=== PATIENT | male | born 1955 | race Caucasian/White ===

== ENCOUNTER 2017-10-31 19:45 | Inpatient (IN) | payer OTHER ==
[~2017-10-31] VITALS: Ht 185.4 cm; Wt 76.0 kg
[2017-10-31] MEDS ORDERED: PLEASE ENTER HEIGHT AND WEIGHT MC SCH (20:00)
[2017-10-31] MEDS ORDERED: PLEASE ENTER ALLERGIES MC SCH (20:00)
[2017-10-31] MEDS ORDERED: SODIUM CHLORIDE 0.9% 1,000ML IVBOLUS ONE ×2 (20:00→20:30)
[2017-10-31 20:26] LABS: MEAN CORPUSCULAR HEMOGLOBIN 28.5 pg (27.5-34.5); MEAN CORPUSCULAR HGB CONC 33.2 g/dL (33.2-36.2); MEAN CORPUSCULAR VOLUME 85.8 fL (81-97); MEAN PLATELET VOLUME 7.2 fL (7.4-10.4); PLATELET COUNT 252 x10^3/uL (130-400); RED BLOOD COUNT 3.95 x10^6/uL (4.38-5.82); RED CELL DISTRIBUTION WIDTH 13.6 % (9.4-14.8)
[2017-10-31 20:33] LABS: PH, VENOUS 6.964 pH (7.320-7.420)
[2017-10-31 20:43] LABS: ALANINE AMINOTRANSFERASE 13 U/L (12-78); ALBUMIN 1.3 g/dL (3.4-5.0); ANION GAP 26 mmol/L (5-15); CALCIUM 7.6 mg/dL (8.5-10.1); CHLORIDE 101 mmol/L (98-107); CREATININE 2.49 mg/dL (0.7-1.3)
[2017-10-31 20:46] LABS: ALKALINE PHOSPHATASE 81 U/L (45-117); BILIRUBIN,TOTAL 0.4 mg/dL (0.2-1.0); TOTAL PROTEIN 5.6 g/dL (6.4-8.2)
[2017-10-31 20:47] LABS: SALICYLATE LEVEL 6.2 mg/dL (2.8-20.0)
[2017-10-31] MEDS: NOREPINEPHRINE 4 MG in SODIUM CHLORIDE 0.9% 246 ML IV PRN (20:47)
[2017-10-31 20:49] LABS: ACETAMINOPHEN < 2 mcg/mL (10-30)
[2017-10-31] MEDS ORDERED: REGULAR INSULIN 62.5 UNITS in SODIUM CHLORIDE 0.9% 249.375 ML IV PRN (20:49)
[2017-10-31] MEDS ORDERED: PIPERACILLIN/TAZO/PMX 4.5GM 100 ML IVPB ONE (21:00)
[2017-10-31] MEDS ORDERED: PHARMACOKINETIC CONSULTATION MC ONE (21:00)
[2017-10-31] MEDS ORDERED: VANCOMYCIN 1,400 MG in SODIUM CHLORIDE 0.9% 250 ML IV ONE (21:00)
[2017-10-31] MEDS ORDERED: SODIUM CHLORIDE 0.9% 1,000 ML IV ONE (21:00)
[2017-10-31] MEDS ORDERED: VANCOMYCIN PER PHARMACY MC ONE (21:00)
[2017-10-31 21:11] LABS: MD YES
[2017-10-31 21:14] LABS: <PLATELET ESTIMATE> ADEQUATE; <RBC MORPHOLOGY> NORMAL; BAND#(MANUAL) 1.74 x10^3/uL; BANDS%(MANUAL) 22 % (0-7); LYMPH#(MANUAL) 0.55 x10^3/uL (1-3.4); LYMPHS% (MANUAL) 7 % (22-44); METAMYELOCYTES# (MANUAL) 0.16 x10^3/uL (0-0); METAMYELOCYTES% (MANUAL) 2 % (0-1); MONOS#(MANUAL) 0.24 x10^3/uL (0.3-2.7); MONOS% (MANUAL) 3 % (2-9); SEG#(MANUAL) 5.21 x10^3/uL (1.8-6.8); SEGS% (MANUAL) 66 % (42-75)
[2017-10-31 21:15] LABS: SMALL PLATELETS 1+
[2017-10-31] MEDS ORDERED: NS + 20MEQ KCL 0 ML IV ONE (21:16)
[2017-10-31 21:20] LABS: ACETONE, SERUM Large (80mg/dL) mg/dL (Negative)
[2017-10-31] MEDS: POTASSIUM CHLORIDE 20 MEQ in SODIUM CHLORIDE 0.45% 1,000 ML IV SCH (21:20)
[2017-10-31 21:46] LABS: AMPHETAMINE SCREEN, URINE Negative (Negative); BARBITURATE SCREEN, URINE Negative (Negative); BENZODIAZEPINE SCREEN, URINE Negative (Negative); CANNABINOID SCREEN, URINE Negative (Negative); COCAINE SCREEN, URINE Negative (Negative); METHADONE SCREEN, URINE Negative (Negative); OPIATE SCREEN, URINE Negative (Negative)
[2017-10-31 21:51] LABS: MICROSCOPIC INDICATED
[2017-10-31 22:11] LABS: CULTURE INDICATED? YES
[2017-10-31 22:46] LABS: RAPID INFLUENZA A Negative (Negative); RAPID INFLUENZA B Negative (Negative)
[2017-10-31 23:29] LABS: ANION GAP 25 mmol/L (5-15); CALCIUM 7.9 mg/dL (8.5-10.1); CHLORIDE 102 mmol/L (98-107)
[2017-10-31 23:33] LABS: CREATININE 2.63 mg/dL (0.7-1.3)
[2017-11-01] MEDS ORDERED: PLEASE ENTER HEIGHT MC SCH (00:26)
[2017-11-01] MEDS ORDERED: SODIUM CHLORIDE 0.9% 1,000 ML IV SCH ×2 (00:30→02:00)
[2017-11-01] MEDS ORDERED: SODIUM BICARB 8.4%, 50ML SYRINGE IVPB PRN ×2 (00:30)
[2017-11-01 00:42] LABS: ANION GAP 23 mmol/L (5-15); CALCIUM 7.8 mg/dL (8.5-10.1); CHLORIDE 104 mmol/L (98-107)
[2017-11-01 00:44] LABS: CREATININE 2.82 mg/dL (0.7-1.3)
[2017-11-01 00:51] LABS: HEMOGLOBIN A1C 13.5 % (4.2-6.3)
[2017-11-01] MEDS: REGULAR INSULIN 62.5 UNITS in SODIUM CHLORIDE 0.9% 249.375 ML IV PRN ×4 (00:53→22:40)
[2017-11-01] MEDS ORDERED: HEPARIN 5,000 UNITS/ML, 1ML ONE (01:23)
[2017-11-01] MEDS: HEPARIN 5,000 UNITS/ML, 1ML SQ SCH ×2 (01:26→09:52)
[2017-11-01] MEDS ORDERED: SODIUM BICARB 8.4%, 50ML SYRINGE ONE (01:48)
[2017-11-01 03:27] LABS: ANION GAP 17 mmol/L (5-15); CALCIUM 7.4 mg/dL (8.5-10.1); CHLORIDE 108 mmol/L (98-107); CREATININE 2.59 mg/dL (0.7-1.3)
[2017-11-01] MEDS: POTASSIUM CHLORIDE 20 MEQ in SODIUM CHLORIDE 0.45% 1,000 ML IV SCH (03:31)
[2017-11-01] MEDS ORDERED: PIPERACILLIN/TAZO/PMX 3.375GM 50 ML ONE (04:16)
[2017-11-01] MEDS: PIPERACILLIN/TAZO/PMX 3.375GM 50 ML IV SCH ×4 (04:28→22:40)
[2017-11-01] MEDS ORDERED: POTASSIUM CHLORIDE 10% 40 MEQ/30 ML UDC PO ONE (04:30)
[2017-11-01] MEDS ORDERED: SODIUM CHLORIDE 0.9% 1,000ML IVBOLUS ONE (04:30)
[2017-11-01] MEDS ORDERED: POTASSIUM CHLORIDE 40 MEQ in SODIUM CHLORIDE 0.9% 100 ML IV ONE (06:00)
[2017-11-01] MEDS ORDERED: FUROSEMIDE 20 MG/2 ML ONE (06:44)
[2017-11-01] MEDS ORDERED: FUROSEMIDE 20 MG/2 ML IV ONE (07:05)
[2017-11-01 07:29] LABS: ANION GAP 13 mmol/L (5-15); CALCIUM 7.1 mg/dL (8.5-10.1); CHLORIDE 110 mmol/L (98-107); CREATININE 2.94 mg/dL (0.7-1.3)
[2017-11-01] MEDS: PROPOFOL 100 ML IV PRN ×2 (08:25→11:20)
[2017-11-01] MEDS ORDERED: ETOMIDATE 20 MG/10 ML IVPush ONE (08:30)
[2017-11-01] MEDS: DOCUSATE 100 MG CAPSULE PO SCH ×2 (09:00→21:00)
[2017-11-01] MEDS: FILTER 0.22 MICRON IV PRN (09:17)
[2017-11-01] MEDS: AMIODARONE 900 MG in DEXTROSE 5% 482 ML IV PRN (09:18)
[2017-11-01 09:25] LABS: FIO2 100 %
[2017-11-01] MEDS ORDERED: LIDOCAINE-MPF 1%, 2ML ENDO PRN (10:00)
[2017-11-01] MEDS ORDERED: PHARMACY MAY ADJ FOR RENAL FX MC SCH (10:00)
[2017-11-01] MEDS ORDERED: ALBUTEROL/IPRATROPIUM 2.5MG/0.5MG, 3 ML ONE (10:09)
[2017-11-01 10:20] LABS: ANION GAP 12 mmol/L (5-15); CALCIUM 7.3 mg/dL (8.5-10.1); CHLORIDE 112 mmol/L (98-107); CREATININE 3.12 mg/dL (0.7-1.3); TRIGLYCERIDES 347 mg/dL (50-200)
[2017-11-01] MEDS ORDERED: MIDAZOLAM 1 MG/ML, 5ML ONE (11:05)
[2017-11-01] MEDS: NOREPINEPHRINE 4 MG in SODIUM CHLORIDE 0.9% 246 ML IV PRN ×2 (11:27→22:40)
[2017-11-01] MEDS ORDERED: MIDAZOLAM 1 MG/ML, 5ML IVPush ONE (11:30)
[2017-11-01] MEDS ORDERED: MIDAZOLAM HCL 25 MG in SODIUM CHLORIDE 0.9% 245 ML IV PRN (11:30)
[2017-11-01 13:58] LABS: ANION GAP 11 mmol/L (5-15); CALCIUM 6.9 mg/dL (8.5-10.1); CHLORIDE 112 mmol/L (98-107)
[2017-11-01 13:59] LABS: CREATININE 3.22 mg/dL (0.7-1.3)
[2017-11-01] MEDS ORDERED: VANCOMYCIN PER PHARMACY MC PRN (14:30)
[2017-11-01 15:23] LABS: CREATINE KINASE, TOTAL 248 U/L (39-308)
[2017-11-01] MEDS ORDERED: PHARMACOKINETIC MONITORING MC PRN (15:30)
[2017-11-01] MEDS ORDERED: ETOMIDATE 20 MG/10 ML ONE (15:30)
[2017-11-01] MEDS ORDERED: PROPOFOL 10 MG/ML, 100ML IV ONE (15:30)
[2017-11-01] MEDS ORDERED: PHARMACOKINETIC CONSULTATION MC ONE (15:30)
[2017-11-01] MEDS: ALBUTEROL/IPRATROPIUM 2.5MG/0.5MG, 3 ML INLINE SCH ×3 (15:35→22:09)
[2017-11-01] MEDS ORDERED: ASPIRIN 81 MG TABLET CHEW ONE (15:48)
[2017-11-01] MEDS ORDERED: HEPARIN 5,000 UNITS/ML, 1ML IV ONE (16:00)
[2017-11-01] MEDS: D5%-0.45NACL+KCL 20MEQ 1,000 ML IV SCH (16:49)
[2017-11-01] MEDS: ASPIRIN 81 MG TABLET CHEW PO SCH (16:50)
[2017-11-01] MEDS ORDERED: MIDAZOLAM HCL 50 MG in SODIUM CHLORIDE 0.9% 240 ML IV PRN (17:00)
[2017-11-01 18:25] LABS: CHLORIDE 112 mmol/L (98-107)
[2017-11-01 18:27] LABS: ANION GAP 11 mmol/L (5-15); CALCIUM 7.3 mg/dL (8.5-10.1)
[2017-11-01] MEDS: HEPARIN 25,000 UNITS/500ML PMX 500 ML IV PRN (18:38)
[2017-11-01] MEDS ORDERED: POTASSIUM CHLORIDE 20 MEQ in SODIUM CHLORIDE 0.45% 1,000 ML IV SCH (21:30)
[2017-11-01 22:44] LABS: ANION GAP 9 mmol/L (5-15); CALCIUM 7.1 mg/dL (8.5-10.1); CHLORIDE 113 mmol/L (98-107); CREATININE 3.41 mg/dL (0.7-1.3)
[2017-11-02] MEDS: ALBUTEROL/IPRATROPIUM 2.5MG/0.5MG, 3 ML INLINE SCH ×6 (02:18→22:19)
[2017-11-02] MEDS: HEPARIN 5,000 UNITS/ML, 1ML IV PRN (02:33)
[2017-11-02 02:49] LABS: ANION GAP 11 mmol/L (5-15); CHLORIDE 113 mmol/L (98-107); CREATININE 3.67 mg/dL (0.7-1.3)
[2017-11-02 02:59] LABS: THYROID STIMULATING HORMONE 0.506 mIU/L (0.358-3.740)
[2017-11-02 03:00] LABS: MEAN CORPUSCULAR HEMOGLOBIN 28.4 pg (27.5-34.5); MEAN CORPUSCULAR HGB CONC 33.5 g/dL (33.2-36.2); MEAN PLATELET VOLUME 6.5 fL (7.4-10.4); PLATELET COUNT 245 x10^3/uL (130-400); RED BLOOD COUNT 3.72 x10^6/uL (4.38-5.82); RED CELL DISTRIBUTION WIDTH 13.9 % (9.4-14.8)
[2017-11-02] MEDS: D5%-0.45NACL+KCL 20MEQ 1,000 ML IV SCH ×2 (03:09→13:28)
[2017-11-02 03:27] LABS: MD YES
[2017-11-02 03:30] LABS: <PLATELET ESTIMATE> ADEQUATE; ANISOCYTOSIS 1+; BAND#(MANUAL) 1.31 x10^3/uL; BANDS%(MANUAL) 11 % (0-7); LYMPH#(MANUAL) 0.95 x10^3/uL (1-3.4); LYMPHS% (MANUAL) 8 % (22-44); METAMYELOCYTES# (MANUAL) 0.24 x10^3/uL (0-0); METAMYELOCYTES% (MANUAL) 2 % (0-1); SEGS% (MANUAL) 79 % (42-75)
[2017-11-02 03:31] LABS: LARGE PLATELETS 1+
[2017-11-02] MEDS: PIPERACILLIN/TAZO/PMX 3.375GM 50 ML IV SCH ×4 (04:50→21:58)
[2017-11-02 04:51] VITALS: BP 114/59
[2017-11-02 06:23] LABS: ANION GAP 11 mmol/L (5-15); CALCIUM 6.7 mg/dL (8.5-10.1); CHLORIDE 111 mmol/L (98-107); CREATININE 3.77 mg/dL (0.7-1.3)
[2017-11-02] MEDS: FILTER 0.22 MICRON IV PRN (07:12)
[2017-11-02] MEDS: AMIODARONE 900 MG in DEXTROSE 5% 482 ML IV PRN (07:12)
[2017-11-02] MEDS: DOCUSATE 50 MG/5 ML, 10ML UDC PO SCH ×2 (09:00→21:00)
[2017-11-02] MEDS: AMIODARONE 200 MG TABLET PO SCH ×2 (09:53→21:58)
[2017-11-02] MEDS: REGULAR INSULIN 62.5 UNITS in SODIUM CHLORIDE 0.9% 249.375 ML IV PRN (09:53)
[2017-11-02] MEDS: PANTOPRAZOLE 40 MG IV IV SCH (09:54)
[2017-11-02 10:44] LABS: ANION GAP 11 mmol/L (5-15); CALCIUM 6.6 mg/dL (8.5-10.1); CHLORIDE 111 mmol/L (98-107)
[2017-11-02 10:48] LABS: ALANINE AMINOTRANSFERASE 15 U/L (12-78); ALKALINE PHOSPHATASE 107 U/L (45-117); BILIRUBIN,TOTAL 0.4 mg/dL (0.2-1.0); CREATININE 3.89 mg/dL (0.7-1.3); TOTAL PROTEIN 4.9 g/dL (6.4-8.2)
[2017-11-02] MEDS: ASPIRIN 81 MG TABLET CHEW PO SCH (18:32)
[2017-11-02] MEDS: HEPARIN 25,000 UNITS/500ML PMX 500 ML IV PRN (19:25)
[2017-11-03] MEDS: REGULAR INSULIN 62.5 UNITS in SODIUM CHLORIDE 0.9% 249.375 ML IV PRN (01:47)
[2017-11-03] MEDS: D5%-0.45NACL+KCL 20MEQ 1,000 ML IV SCH (01:54)
[2017-11-03] MEDS: HEPARIN 5,000 UNITS/ML, 1ML IV PRN (02:39)
[2017-11-03] MEDS: ALBUTEROL/IPRATROPIUM 2.5MG/0.5MG, 3 ML INLINE SCH ×6 (02:44→22:37)
[2017-11-03] MEDS: PIPERACILLIN/TAZO/PMX 3.375GM 50 ML IV SCH ×4 (04:25→22:24)
[2017-11-03 05:03] LABS: MEAN CORPUSCULAR HEMOGLOBIN 28.6 pg (27.5-34.5); MEAN CORPUSCULAR HGB CONC 33.6 g/dL (33.2-36.2); MEAN CORPUSCULAR VOLUME 85.1 fL (81-97); RED BLOOD COUNT 3.23 x10^6/uL (4.38-5.82); RED CELL DISTRIBUTION WIDTH 13.8 % (9.4-14.8)
[2017-11-03 05:27] LABS: CHLORIDE 102 mmol/L (98-107)
[2017-11-03 05:55] LABS: ALANINE AMINOTRANSFERASE 14 U/L (12-78); ALBUMIN 0.9 g/dL (3.4-5.0); ALKALINE PHOSPHATASE 156 U/L (45-117); ANION GAP 11 mmol/L (5-15); BILIRUBIN,TOTAL 0.7 mg/dL (0.2-1.0); CREATININE 2.98 mg/dL (0.7-1.3); MD YES; VANCOMYCIN,RANDOM 11.8 mcg/mL
[2017-11-03 05:56] LABS: MEAN PLATELET VOLUME 6.7 fL (7.4-10.4); PLATELET COUNT 154 x10^3/uL (130-400)
[2017-11-03 05:57] LABS: BAND#(MANUAL) 0.59 x10^3/uL; BANDS%(MANUAL) 5 % (0-7); LYMPH#(MANUAL) 0.59 x10^3/uL (1-3.4); LYMPHS% (MANUAL) 5 % (22-44); MONOS#(MANUAL) 0.24 x10^3/uL (0.3-2.7); MONOS% (MANUAL) 2 % (2-9); SEG#(MANUAL) 10.38 x10^3/uL (1.8-6.8); SEGS% (MANUAL) 88 % (42-75)
[2017-11-03 06:01] LABS: <PLATELET ESTIMATE> ADEQUATE; <PLT MORPHOLOGY> NORMAL PLT MORPH; <RBC MORPHOLOGY> NORMAL
[2017-11-03] MEDS ORDERED: VANCOMYCIN 1,600 MG in SODIUM CHLORIDE 0.9% 250 ML IV ONE (06:30)
[2017-11-03] MEDS ORDERED: SODIUM PHOSPHATE 20 MMOL in SODIUM CHLORIDE 0.9% 500 ML IV ONE (08:00)
[2017-11-03] MEDS ORDERED: MAGNESIUM SULFATE PMX 2GM/50ML 50 ML IV ONE (08:00)
[2017-11-03] MEDS: DOCUSATE 50 MG/5 ML, 10ML UDC PO SCH ×2 (09:00→20:47)
[2017-11-03] MEDS: AMIODARONE 200 MG TABLET PO SCH (09:11)
[2017-11-03] MEDS: PANTOPRAZOLE 40 MG IV IV SCH (09:11)
[2017-11-03] MEDS: INSULIN ASPART 100 UNITS/ML, PEN SQ-INSULIN SCH ×3 (12:08→20:52)
[2017-11-03] MEDS: INSULIN DETEMIR 100 UNITS/ML, PEN SQ-INSULIN SCH ×2 (12:08→22:27)
[2017-11-03] MEDS: ALBUMIN HUMAN 25% 100 ML IV SCH ×2 (14:07→20:48)
[2017-11-03] MEDS: PROPOFOL 100 ML IV PRN (15:21)
[2017-11-03] MEDS: ASPIRIN 81 MG TABLET CHEW PO SCH (16:46)
[2017-11-03] MEDS: ACETAMINOPHEN 650 MG/20.3 ML UDC NG PRN (22:24)
[2017-11-04] MEDS: ALBUTEROL/IPRATROPIUM 2.5MG/0.5MG, 3 ML INLINE SCH ×5 (03:12→23:00)
[2017-11-04] MEDS: PROPOFOL 100 ML IV PRN (03:43)
[2017-11-04] MEDS: ALBUMIN HUMAN 25% 100 ML IV SCH ×3 (04:26→20:23)
[2017-11-04] MEDS: PIPERACILLIN/TAZO/PMX 3.375GM 50 ML IV SCH (04:27)
[2017-11-04] MEDS: ACETAMINOPHEN 650 MG/20.3 ML UDC NG PRN (04:43)
[2017-11-04 06:12] LABS: BASOPHILS # (AUTO) 0.02 x10^3/uL (0-0.1); BASOPHILS % (AUTO) 0 % (0-1); EOSINOPHILS # (AUTO) 0.01 x10^3/uL (0-0.4); EOSINOPHILS % (AUTO) 0 % (1-7); LYMPHOCYTES # (AUTO) 0.42 x10^3/uL (1-3.4); LYMPHOCYTES % (AUTO) 7 % (22-44); MD NO; MEAN CORPUSCULAR HEMOGLOBIN 28.6 pg (27.5-34.5); MEAN CORPUSCULAR HGB CONC 34.1 g/dL (33.2-36.2); MEAN CORPUSCULAR VOLUME 83.9 fL (81-97); MEAN PLATELET VOLUME 6.7 fL (7.4-10.4); MONOCYTES % (AUTO) 3 % (2-9); NEUTROPHILS # (AUTO) 5.78 x10^3/uL (1.8-6.8); NEUTROPHILS % (AUTO) 90 % (42-75); PLATELET COUNT 121 x10^3/uL (130-400); RED BLOOD COUNT 3.02 x10^6/uL (4.38-5.82); RED CELL DISTRIBUTION WIDTH 13.8 % (9.4-14.8)
[2017-11-04 06:39] LABS: ALBUMIN 1.4 g/dL (3.4-5.0); ANION GAP 13 mmol/L (5-15); CALCIUM 7.4 mg/dL (8.5-10.1); CHLORIDE 97 mmol/L (98-107); CREATININE 3.21 mg/dL (0.7-1.3)
[2017-11-04] MEDS ORDERED: CEFTRIAXONE PMX 1GM/50ML 50 ML IV SCH (08:00)
[2017-11-04] MEDS: PANTOPRAZOLE 40 MG IV IV SCH (08:11)
[2017-11-04] MEDS: DOCUSATE 50 MG/5 ML, 10ML UDC PO SCH ×2 (08:11→20:19)
[2017-11-04] MEDS: INSULIN ASPART 100 UNITS/ML, PEN SQ-INSULIN SCH ×5 (08:13→23:15)
[2017-11-04] MEDS: INSULIN DETEMIR 100 UNITS/ML, PEN SQ-INSULIN SCH ×2 (12:24→23:14)
[2017-11-04] MEDS: ASPIRIN 81 MG TABLET CHEW PO SCH (16:00)
[2017-11-05] MEDS: ALBUTEROL/IPRATROPIUM 2.5MG/0.5MG, 3 ML INLINE SCH ×6 (03:00→22:49)
[2017-11-05] MEDS: ALBUMIN HUMAN 25% 100 ML IV SCH ×3 (04:17→20:36)
[2017-11-05] MEDS: INSULIN ASPART 100 UNITS/ML, PEN SQ-INSULIN SCH ×4 (04:22→23:41)
[2017-11-05 05:09] LABS: MEAN CORPUSCULAR HEMOGLOBIN 28.9 pg (27.5-34.5); MEAN CORPUSCULAR HGB CONC 34.2 g/dL (33.2-36.2); MEAN CORPUSCULAR VOLUME 84.4 fL (81-97); RED BLOOD COUNT 2.91 x10^6/uL (4.38-5.82); RED CELL DISTRIBUTION WIDTH 13.6 % (9.4-14.8)
[2017-11-05 05:33] LABS: BASOPHILS # (AUTO) 0.01 x10^3/uL (0-0.1); BASOPHILS % (AUTO) 0 % (0-1); EOSINOPHILS # (AUTO) 0.01 x10^3/uL (0-0.4); EOSINOPHILS % (AUTO) 0 % (1-7); LYMPHOCYTES # (AUTO) 0.51 x10^3/uL (1-3.4); LYMPHOCYTES % (AUTO) 8 % (22-44); MD SCAN; MEAN PLATELET VOLUME 6.6 fL (7.4-10.4); MONOCYTES # (AUTO) 0.52 x10^3/uL (0.2-0.8); MONOCYTES % (AUTO) 9 % (2-9); NEUTROPHILS # (AUTO) 5.02 x10^3/uL (1.8-6.8); NEUTROPHILS % (AUTO) 83 % (42-75); PLATELET COUNT 111 x10^3/uL (130-400)
[2017-11-05 07:56] LABS: ALANINE AMINOTRANSFERASE 17 U/L (12-78); ALBUMIN 1.9 g/dL (3.4-5.0); ANION GAP 16 mmol/L (5-15); CALCIUM 7.6 mg/dL (8.5-10.1); CHLORIDE 98 mmol/L (98-107); CREATININE 4.48 mg/dL (0.7-1.3)
[2017-11-05 07:58] LABS: BILIRUBIN,TOTAL 1.1 mg/dL (0.2-1.0); TOTAL PROTEIN 5.6 g/dL (6.4-8.2)
[2017-11-05 08:00] LABS: ALKALINE PHOSPHATASE 763 U/L (45-117)
[2017-11-05] MEDS: CEFTRIAXONE 1,000 MG in DEXTROSE 5% 50 ML IV SCH (08:32)
[2017-11-05] MEDS: DOCUSATE 50 MG/5 ML, 10ML UDC PO SCH ×2 (08:32→20:36)
[2017-11-05] MEDS: PANTOPRAZOLE 40 MG IV IV SCH (08:32)
[2017-11-05] MEDS: INSULIN DETEMIR 100 UNITS/ML, PEN SQ-INSULIN SCH ×2 (11:11→23:41)
[2017-11-05 15:04] LABS: HIT RESULT NEGATIVE (NEGATIVE)
[2017-11-05] MEDS: PROPOFOL 100 ML IV PRN (16:05)
[2017-11-05] MEDS: ASPIRIN 81 MG TABLET CHEW PO SCH (16:05)
[2017-11-06] MEDS: ALBUTEROL/IPRATROPIUM 2.5MG/0.5MG, 3 ML INLINE SCH ×6 (03:00→22:13)
[2017-11-06] MEDS: ALBUMIN HUMAN 25% 100 ML IV SCH ×3 (04:00→19:03)
[2017-11-06 05:48] LABS: ANION GAP 13 mmol/L (5-15); CALCIUM 8.2 mg/dL (8.5-10.1); CHLORIDE 96 mmol/L (98-107); CREATININE 3.56 mg/dL (0.7-1.3)
[2017-11-06 06:19] LABS: BASOPHILS # (AUTO) 0.01 x10^3/uL (0-0.1); BASOPHILS % (AUTO) 0 % (0-1); EOSINOPHILS # (AUTO) 0.03 x10^3/uL (0-0.4); EOSINOPHILS % (AUTO) 1 % (1-7); LYMPHOCYTES # (AUTO) 0.44 x10^3/uL (1-3.4); LYMPHOCYTES % (AUTO) 9 % (22-44); MD SCAN; MEAN CORPUSCULAR HEMOGLOBIN 28.7 pg (27.5-34.5); MEAN CORPUSCULAR HGB CONC 34.6 g/dL (33.2-36.2); MEAN CORPUSCULAR VOLUME 83.1 fL (81-97); MONOCYTES # (AUTO) 0.51 x10^3/uL (0.2-0.8); MONOCYTES % (AUTO) 10 % (2-9); NEUTROPHILS # (AUTO) 4.18 x10^3/uL (1.8-6.8); NEUTROPHILS % (AUTO) 81 % (42-75); RED BLOOD COUNT 2.82 x10^6/uL (4.38-5.82); RED CELL DISTRIBUTION WIDTH 13.7 % (9.4-14.8)
[2017-11-06 06:20] LABS: MEAN PLATELET VOLUME 7.6 fL (7.4-10.4); PLATELET COUNT 80 x10^3/uL (130-400)
[2017-11-06] MEDS: INSULIN ASPART 100 UNITS/ML, PEN SQ-INSULIN SCH ×4 (06:28→23:19)
[2017-11-06] MEDS: CEFTRIAXONE 1,000 MG in DEXTROSE 5% 50 ML IV SCH (07:54)
[2017-11-06] MEDS: DOCUSATE 50 MG/5 ML, 10ML UDC PO SCH ×2 (08:27→19:10)
[2017-11-06] MEDS: PANTOPRAZOLE 40 MG IV IV SCH (08:28)
[2017-11-06] MEDS: HEPARIN 5,000 UNITS/ML, 1ML SQ SCH ×2 (10:29→17:38)
[2017-11-06] MEDS: INSULIN DETEMIR 100 UNITS/ML, PEN SQ-INSULIN SCH ×2 (12:01→23:19)
[2017-11-06] MEDS: ASPIRIN 81 MG TABLET CHEW PO SCH (15:53)
[2017-11-07] MEDS: HEPARIN 5,000 UNITS/ML, 1ML SQ SCH ×3 (01:23→16:42)
[2017-11-07] MEDS: ALBUTEROL/IPRATROPIUM 2.5MG/0.5MG, 3 ML INLINE SCH ×6 (02:12→23:00)
[2017-11-07 03:56] LABS: MEAN CORPUSCULAR HEMOGLOBIN 28.4 pg (27.5-34.5); MEAN CORPUSCULAR HGB CONC 33.9 g/dL (33.2-36.2); MEAN CORPUSCULAR VOLUME 83.7 fL (81-97); MEAN PLATELET VOLUME 8.7 fL (7.4-10.4); PLATELET COUNT 73 x10^3/uL (130-400); RED BLOOD COUNT 2.81 x10^6/uL (4.38-5.82); RED CELL DISTRIBUTION WIDTH 13.8 % (9.4-14.8)
[2017-11-07 04:05] LABS: ALBUMIN 2.5 g/dL (3.4-5.0); ANION GAP 11 mmol/L (5-15); CHLORIDE 101 mmol/L (98-107)
[2017-11-07 04:09] LABS: ALANINE AMINOTRANSFERASE 18 U/L (12-78); ALKALINE PHOSPHATASE 907 U/L (45-117); BILIRUBIN,TOTAL 0.6 mg/dL (0.2-1.0); CREATININE 3.21 mg/dL (0.7-1.3); TOTAL PROTEIN 6.3 g/dL (6.4-8.2); TRIGLYCERIDES 187 mg/dL (50-200)
[2017-11-07] MEDS: INSULIN ASPART 100 UNITS/ML, PEN SQ-INSULIN SCH ×4 (04:58→23:00)
[2017-11-07 04:59] LABS: BASOPHILS # (AUTO) 0.02 x10^3/uL (0-0.1); BASOPHILS % (AUTO) 0 % (0-1); EOSINOPHILS # (AUTO) 0.04 x10^3/uL (0-0.4); EOSINOPHILS % (AUTO) 1 % (1-7); LYMPHOCYTES # (AUTO) 0.42 x10^3/uL (1-3.4); LYMPHOCYTES % (AUTO) 7 % (22-44); MD SCAN; MONOCYTES # (AUTO) 0.57 x10^3/uL (0.2-0.8); MONOCYTES % (AUTO) 10 % (2-9); NEUTROPHILS % (AUTO) 82 % (42-75)
[2017-11-07] MEDS: ALBUMIN HUMAN 25% 100 ML IV SCH ×3 (04:59→20:25)
[2017-11-07] MEDS ORDERED: SODIUM PHOSPHATE 20 MMOL in SODIUM CHLORIDE 0.9% 500 ML IV ONE (08:00)
[2017-11-07] MEDS: CEFTRIAXONE 1,000 MG in DEXTROSE 5% 50 ML IV SCH (08:16)
[2017-11-07] MEDS: PANTOPRAZOLE 40 MG IV IV SCH (08:16)
[2017-11-07] MEDS: DOCUSATE 50 MG/5 ML, 10ML UDC PO SCH ×2 (08:26→20:25)
[2017-11-07] MEDS: INSULIN DETEMIR 100 UNITS/ML, PEN SQ-INSULIN SCH ×2 (11:09→23:22)
[2017-11-07] MEDS: ASPIRIN 81 MG TABLET CHEW PO SCH (16:42)
[2017-11-08] MEDS: HEPARIN 5,000 UNITS/ML, 1ML SQ SCH ×3 (01:38→17:50)
[2017-11-08] MEDS: ALBUTEROL/IPRATROPIUM 2.5MG/0.5MG, 3 ML INLINE SCH ×6 (03:00→23:00)
[2017-11-08 04:05] LABS: BASOPHILS # (AUTO) 0.01 x10^3/uL (0-0.1); BASOPHILS % (AUTO) 0 % (0-1); EOSINOPHILS # (AUTO) 0.06 x10^3/uL (0-0.4); EOSINOPHILS % (AUTO) 1 % (1-7); LYMPHOCYTES # (AUTO) 0.49 x10^3/uL (1-3.4); LYMPHOCYTES % (AUTO) 7 % (22-44); MD NO; MEAN CORPUSCULAR HEMOGLOBIN 28.3 pg (27.5-34.5); MEAN CORPUSCULAR HGB CONC 33.9 g/dL (33.2-36.2); MEAN CORPUSCULAR VOLUME 83.6 fL (81-97); MEAN PLATELET VOLUME 8.5 fL (7.4-10.4); MONOCYTES # (AUTO) 0.51 x10^3/uL (0.2-0.8); MONOCYTES % (AUTO) 7 % (2-9); NEUTROPHILS # (AUTO) 6.41 x10^3/uL (1.8-6.8); NEUTROPHILS % (AUTO) 86 % (42-75); PLATELET COUNT 168 x10^3/uL (130-400); RED CELL DISTRIBUTION WIDTH 13.9 % (9.4-14.8)
[2017-11-08 04:17] LABS: ALANINE AMINOTRANSFERASE 25 U/L (12-78); ALBUMIN 2.6 g/dL (3.4-5.0); ANION GAP 12 mmol/L (5-15); CALCIUM 8.4 mg/dL (8.5-10.1); CHLORIDE 100 mmol/L (98-107); CREATININE 4.27 mg/dL (0.7-1.3); IRON LEVEL 15 mcg/dL (65-175)
[2017-11-08 04:20] LABS: % IRON SATURATION 13 % (20-55); ALKALINE PHOSPHATASE 921 U/L (45-117); BILIRUBIN,TOTAL 0.5 mg/dL (0.2-1.0); TOTAL IRON BINDING CAPACITY 119 mcg/dL (250-450); TOTAL PROTEIN 6.4 g/dL (6.4-8.2)
[2017-11-08] MEDS: ALBUMIN HUMAN 25% 100 ML IV SCH ×3 (04:25→20:45)
[2017-11-08] MEDS: INSULIN ASPART 100 UNITS/ML, PEN SQ-INSULIN SCH ×4 (06:26→23:00)
[2017-11-08] MEDS: CEFTRIAXONE 1,000 MG in DEXTROSE 5% 50 ML IV SCH (07:50)
[2017-11-08] MEDS ORDERED: ARANESP 40 MCG/ML **ESRD SQ SCH (09:00)
[2017-11-08] MEDS ORDERED: ERGOCALCIFEROL 50,000 UNIT CAPSULE PO SCH (09:00)
[2017-11-08] MEDS: PANTOPRAZOLE 40 MG IV IV SCH (09:05)
[2017-11-08] MEDS: DOCUSATE 50 MG/5 ML, 10ML UDC PO SCH ×2 (09:05→20:45)
[2017-11-08] MEDS ORDERED: MAGNESIUM SULFATE PMX 2GM/50ML 50 ML IV ONE (13:00)
[2017-11-08] MEDS: INSULIN DETEMIR 100 UNITS/ML, PEN SQ-INSULIN SCH ×2 (17:49→23:21)
[2017-11-08] MEDS: ASPIRIN 81 MG TABLET CHEW PO SCH (17:50)
[2017-11-09] MEDS: ALBUTEROL/IPRATROPIUM 2.5MG/0.5MG, 3 ML INLINE SCH ×2 (02:12→03:00)
[2017-11-09] MEDS: HEPARIN 5,000 UNITS/ML, 1ML SQ SCH ×3 (02:20→16:43)
[2017-11-09] MEDS: INSULIN ASPART 100 UNITS/ML, PEN SQ-INSULIN SCH ×4 (05:00→23:00)
[2017-11-09 05:26] LABS: BASOPHILS # (AUTO) 0.01 x10^3/uL (0-0.1); BASOPHILS % (AUTO) 0 % (0-1); EOSINOPHILS # (AUTO) 0.06 x10^3/uL (0-0.4); EOSINOPHILS % (AUTO) 1 % (1-7); LYMPHOCYTES # (AUTO) 0.42 x10^3/uL (1-3.4); LYMPHOCYTES % (AUTO) 4 % (22-44); MD NO; MEAN CORPUSCULAR HEMOGLOBIN 28.6 pg (27.5-34.5); MEAN CORPUSCULAR HGB CONC 34.1 g/dL (33.2-36.2); MEAN CORPUSCULAR VOLUME 83.8 fL (81-97); MEAN PLATELET VOLUME 7.9 fL (7.4-10.4); MONOCYTES # (AUTO) 0.57 x10^3/uL (0.2-0.8); MONOCYTES % (AUTO) 5 % (2-9); NEUTROPHILS # (AUTO) 11.12 x10^3/uL (1.8-6.8); NEUTROPHILS % (AUTO) 91 % (42-75); PLATELET COUNT 263 x10^3/uL (130-400); RED BLOOD COUNT 2.87 x10^6/uL (4.38-5.82); RED CELL DISTRIBUTION WIDTH 13.5 % (9.4-14.8)
[2017-11-09 05:30] LABS: CHLORIDE 105 mmol/L (98-107)
[2017-11-09] MEDS: ALBUMIN HUMAN 25% 100 ML IV SCH (05:31)
[2017-11-09 05:36] LABS: ALANINE AMINOTRANSFERASE 22 U/L (12-78); ALBUMIN 2.8 g/dL (3.4-5.0); ALKALINE PHOSPHATASE 672 U/L (45-117); ANION GAP 9 mmol/L (5-15); BILIRUBIN,TOTAL 0.6 mg/dL (0.2-1.0); CALCIUM 9.2 mg/dL (8.5-10.1); CREATININE 3.65 mg/dL (0.7-1.3); TOTAL PROTEIN 6.5 g/dL (6.4-8.2)
[2017-11-09] MEDS ORDERED: ALBUTEROL SULFATE 2.5 MG/3 ML ONE (06:44)
[2017-11-09] MEDS ORDERED: ALBUTEROL SULFATE 2.5 MG/3 ML NPPB SCH (07:00)
[2017-11-09] MEDS: DOCUSATE 50 MG/5 ML, 10ML UDC PO SCH ×2 (08:07→20:39)
[2017-11-09] MEDS: PANTOPRAZOLE 40 MG IV IV SCH (08:07)
[2017-11-09] MEDS: CEFTRIAXONE 1,000 MG in DEXTROSE 5% 50 ML IV SCH (11:02)
[2017-11-09] MEDS: ALBUTEROL SULFATE 2.5 MG/3 ML NPPB SCH ×3 (14:10→23:01)
[2017-11-09] MEDS: ASPIRIN 81 MG TABLET CHEW PO SCH (16:42)
[2017-11-09] MEDS: INSULIN DETEMIR 100 UNITS/ML, PEN SQ-INSULIN SCH (16:48)
[2017-11-09] MEDS ORDERED: ALBUTEROL/IPRATROPIUM 2.5MG/0.5MG, 3 ML ONE ×2 (18:38)
[2017-11-09] MEDS: ATORVASTATIN 40 MG TABLET PO SCH (20:39)
[2017-11-10] MEDS: HEPARIN 5,000 UNITS/ML, 1ML SQ SCH ×3 (02:40→17:00)
[2017-11-10] MEDS: ALBUTEROL SULFATE 2.5 MG/3 ML NPPB SCH ×4 (03:00→21:00)
[2017-11-10 04:44] LABS: BASOPHILS # (AUTO) 0.01 x10^3/uL (0-0.1); BASOPHILS % (AUTO) 0 % (0-1); EOSINOPHILS # (AUTO) 0.02 x10^3/uL (0-0.4); EOSINOPHILS % (AUTO) 0 % (1-7); LYMPHOCYTES # (AUTO) 0.63 x10^3/uL (1-3.4); LYMPHOCYTES % (AUTO) 4 % (22-44); MD NO; MEAN CORPUSCULAR HEMOGLOBIN 28.5 pg (27.5-34.5); MEAN CORPUSCULAR HGB CONC 33.4 g/dL (33.2-36.2); MEAN CORPUSCULAR VOLUME 85.1 fL (81-97); MEAN PLATELET VOLUME 7.7 fL (7.4-10.4); MONOCYTES # (AUTO) 0.67 x10^3/uL (0.2-0.8); MONOCYTES % (AUTO) 4 % (2-9); NEUTROPHILS # (AUTO) 14.72 x10^3/uL (1.8-6.8); NEUTROPHILS % (AUTO) 92 % (42-75); PLATELET COUNT 347 x10^3/uL (130-400); RED BLOOD COUNT 2.77 x10^6/uL (4.38-5.82); RED CELL DISTRIBUTION WIDTH 13.7 % (9.4-14.8)
[2017-11-10 04:46] LABS: ALANINE AMINOTRANSFERASE 18 U/L (12-78); ALBUMIN 2.6 g/dL (3.4-5.0); ANION GAP 14 mmol/L (5-15); CALCIUM 8.9 mg/dL (8.5-10.1); CHLORIDE 100 mmol/L (98-107); CREATININE 4.69 mg/dL (0.7-1.3); TRIGLYCERIDES 184 mg/dL (50-200)
[2017-11-10 04:49] LABS: ALKALINE PHOSPHATASE 535 U/L (45-117); BILIRUBIN,TOTAL 0.6 mg/dL (0.2-1.0)
[2017-11-10] MEDS: INSULIN ASPART 100 UNITS/ML, PEN SQ-INSULIN SCH ×4 (05:00→23:03)
[2017-11-10] MEDS: INSULIN DETEMIR 100 UNITS/ML, PEN SQ-INSULIN SCH ×2 (05:00→17:00)
[2017-11-10] MEDS: PANTOPRAZOLE 40 MG IV IV SCH (08:37)
[2017-11-10] MEDS: DOCUSATE 50 MG/5 ML, 10ML UDC PO SCH ×2 (08:38→21:00)
[2017-11-10] MEDS ORDERED: EPINEPHRINE SYRINGE 0.1 MG/ML, 10ML ONE (12:00)
[2017-11-10] MEDS: CEFTRIAXONE 1,000 MG in DEXTROSE 5% 50 ML IV SCH (13:00)
[2017-11-10 15:00] LABS: ANION GAP 20 mmol/L (5-15); CALCIUM 8.8 mg/dL (8.5-10.1); CHLORIDE 100 mmol/L (98-107); CREATININE 2.69 mg/dL (0.7-1.3)
[2017-11-10 15:04] LABS: TROPONIN I 0.204 ng/mL (0.000-0.045)
[2017-11-10 15:11] LABS: MEAN CORPUSCULAR HEMOGLOBIN 28.5 pg (27.5-34.5); MEAN CORPUSCULAR HGB CONC 33.3 g/dL (33.2-36.2); MEAN CORPUSCULAR VOLUME 85.7 fL (81-97); MEAN PLATELET VOLUME 7.7 fL (7.4-10.4); PLATELET COUNT 440 x10^3/uL (130-400); RED BLOOD COUNT 3.02 x10^6/uL (4.38-5.82); RED CELL DISTRIBUTION WIDTH 13.8 % (9.4-14.8)
[2017-11-10 15:29] LABS: BASOPHILS # (AUTO) 0.04 x10^3/uL (0-0.1); BASOPHILS % (AUTO) 0 % (0-1); EOSINOPHILS # (AUTO) 0.04 x10^3/uL (0-0.4); EOSINOPHILS % (AUTO) 0 % (1-7); LYMPHOCYTES % (AUTO) 7 % (22-44); MD MORPH REVIEW ONLY; MONOCYTES % (AUTO) 3 % (2-9); NEUTROPHILS # (AUTO) 26.61 x10^3/uL (1.8-6.8); NEUTROPHILS % (AUTO) 90 % (42-75)
[2017-11-10 15:30] LABS: TOXIC GRAN 1+
[2017-11-10 15:31] LABS: <PLATELET ESTIMATE> ADEQUATE; <PLT MORPHOLOGY> NORMAL PLT MORPH; <RBC MORPHOLOGY> NORMAL
[2017-11-10] MEDS: ASPIRIN 81 MG TABLET CHEW PO SCH (16:00)
[2017-11-10] MEDS ORDERED: NOREPINEPHRINE 1 MG/ML, 4ML ONE (16:39)
[2017-11-10] MEDS ORDERED: NOREPINEPHRINE 4 MG in SODIUM CHLORIDE 0.9% 246 ML IV PRN (17:00)
[2017-11-10] MEDS ORDERED: PHARMACY MAY ADJ FOR RENAL FX MC SCH (19:00)
[2017-11-10] MEDS ORDERED: LIDOCAINE-MPF 1%, 2ML ENDO PRN (19:00)
[2017-11-10] MEDS ORDERED: SENNOSIDES 8.8 MG/5 ML ORAL SOL NG PRN (19:00)
[2017-11-10] MEDS ORDERED: BISACODYL 10 MG SUPP PR PRN (19:00)
[2017-11-10] MEDS ORDERED: LACTULOSE 20 GM/30 ML UDC NG PRN (19:00)
[2017-11-10] MEDS: ALBUTEROL/IPRATROPIUM 2.5MG/0.5MG, 3 ML INLINE SCH (19:00)
[2017-11-10] MEDS ORDERED: FILTER 0.22 MICRON IV PRN (20:00)
[2017-11-10] MEDS ORDERED: AMIODARONE 900 MG in DEXTROSE 5% 482 ML IV PRN (20:00)
[2017-11-10] MEDS ORDERED: AMIODARONE 150 MG in DEXTROSE 5% 100 ML IV ONE (20:00)
[2017-11-10] MEDS: ATORVASTATIN 40 MG TABLET PO SCH (21:00)
[2017-11-10 23:20] LABS: TROPONIN I 0.217 ng/mL (0.000-0.045)
[2017-11-11] MEDS: HALOPERIDOL 5 MG/ML IV PRN ×2 (00:01→03:43)
[2017-11-11] MEDS: HEPARIN 5,000 UNITS/ML, 1ML SQ SCH ×3 (01:37→17:00)
[2017-11-11] MEDS: ALBUTEROL/IPRATROPIUM 2.5MG/0.5MG, 3 ML INLINE SCH ×6 (02:22→23:00)
[2017-11-11] MEDS: LORazepam 2 MG/ML, 1ML IV PRN ×3 (03:53→07:58)
[2017-11-11 04:48] LABS: MEAN CORPUSCULAR HEMOGLOBIN 28.4 pg (27.5-34.5); MEAN CORPUSCULAR HGB CONC 33.5 g/dL (33.2-36.2); MEAN CORPUSCULAR VOLUME 84.7 fL (81-97); MEAN PLATELET VOLUME 7.6 fL (7.4-10.4); PLATELET COUNT 434 x10^3/uL (130-400); RED BLOOD COUNT 2.66 x10^6/uL (4.38-5.82)
[2017-11-11 05:09] LABS: ALBUMIN 2.5 g/dL (3.4-5.0); ANION GAP 20 mmol/L (5-15); CALCIUM 8.4 mg/dL (8.5-10.1); CHLORIDE 101 mmol/L (98-107)
[2017-11-11 05:10] LABS: BASOPHILS # (AUTO) 0.01 x10^3/uL (0-0.1); BASOPHILS % (AUTO) 0 % (0-1); EOSINOPHILS # (AUTO) 0.26 x10^3/uL (0-0.4); EOSINOPHILS % (AUTO) 2 % (1-7); LYMPHOCYTES # (AUTO) 0.46 x10^3/uL (1-3.4); LYMPHOCYTES % (AUTO) 3 % (22-44); MD SCAN; MONOCYTES # (AUTO) 0.63 x10^3/uL (0.2-0.8); MONOCYTES % (AUTO) 4 % (2-9); NEUTROPHILS # (AUTO) 16.11 x10^3/uL (1.8-6.8); NEUTROPHILS % (AUTO) 92 % (42-75)
[2017-11-11 05:13] LABS: ALANINE AMINOTRANSFERASE 37 U/L (12-78); ALKALINE PHOSPHATASE 485 U/L (45-117); BILIRUBIN,TOTAL 0.6 mg/dL (0.2-1.0); CREATININE 3.77 mg/dL (0.7-1.3); TOTAL PROTEIN 7.1 g/dL (6.4-8.2)
[2017-11-11 05:19] LABS: TROPONIN I 0.196 ng/mL (0.000-0.045)
[2017-11-11] MEDS: INSULIN DETEMIR 100 UNITS/ML, PEN SQ-INSULIN SCH ×2 (05:48→17:00)
[2017-11-11] MEDS: INSULIN ASPART 100 UNITS/ML, PEN SQ-INSULIN SCH ×4 (05:49→23:30)
[2017-11-11] MEDS: DOCUSATE 50 MG/5 ML, 10ML UDC PO SCH ×2 (08:48→21:00)
[2017-11-11] MEDS: PANTOPRAZOLE 40 MG IV IV SCH (08:53)
[2017-11-11] MEDS: CEFTRIAXONE 1,000 MG in DEXTROSE 5% 50 ML IV SCH (14:24)
[2017-11-11] MEDS: ASPIRIN 81 MG TABLET CHEW PO SCH (16:00)
[2017-11-11] MEDS: ATORVASTATIN 40 MG TABLET PO SCH (21:00)
[2017-11-11] MEDS: MORPHINE SULFATE 4 MG/ML, 1ML IVPush PRN ×2 (22:25→23:54)
[2017-11-11] MEDS ORDERED: SODIUM CHLORIDE 0.9%, 250ML IVBOLUS ONE (23:00)
[2017-11-12] MEDS: HEPARIN 5,000 UNITS/ML, 1ML SQ SCH ×3 (01:38→17:56)
[2017-11-12] MEDS: ALBUTEROL/IPRATROPIUM 2.5MG/0.5MG, 3 ML INLINE SCH ×6 (02:38→22:35)
[2017-11-12] MEDS: MORPHINE SULFATE 4 MG/ML, 1ML IVPush PRN ×2 (03:25→22:01)
[2017-11-12 04:53] LABS: ALANINE AMINOTRANSFERASE 22 U/L (12-78); ALBUMIN 2.2 g/dL (3.4-5.0); ANION GAP 16 mmol/L (5-15); CALCIUM 8.2 mg/dL (8.5-10.1); CHLORIDE 100 mmol/L (98-107); CREATININE 3.06 mg/dL (0.7-1.3)
[2017-11-12 04:55] LABS: ALKALINE PHOSPHATASE 367 U/L (45-117); BILIRUBIN,TOTAL 0.5 mg/dL (0.2-1.0); MEAN CORPUSCULAR HEMOGLOBIN 28.6 pg (27.5-34.5); MEAN CORPUSCULAR HGB CONC 34.1 g/dL (33.2-36.2); MEAN CORPUSCULAR VOLUME 84.1 fL (81-97); MEAN PLATELET VOLUME 7.3 fL (7.4-10.4); PLATELET COUNT 419 x10^3/uL (130-400); RED BLOOD COUNT 2.34 x10^6/uL (4.38-5.82); TOTAL PROTEIN 6.6 g/dL (6.4-8.2)
[2017-11-12 05:12] LABS: BASOPHILS # (AUTO) 0.02 x10^3/uL (0-0.1); BASOPHILS % (AUTO) 0 % (0-1); EOSINOPHILS % (AUTO) 0 % (1-7); LYMPHOCYTES # (AUTO) 0.48 x10^3/uL (1-3.4); LYMPHOCYTES % (AUTO) 4 % (22-44); MD SCAN; MONOCYTES # (AUTO) 0.38 x10^3/uL (0.2-0.8); MONOCYTES % (AUTO) 3 % (2-9); NEUTROPHILS # (AUTO) 10.98 x10^3/uL (1.8-6.8); NEUTROPHILS % (AUTO) 93 % (42-75)
[2017-11-12] MEDS: INSULIN DETEMIR 100 UNITS/ML, PEN SQ-INSULIN SCH ×2 (05:23→17:00)
[2017-11-12] MEDS: INSULIN ASPART 100 UNITS/ML, PEN SQ-INSULIN SCH ×4 (05:23→23:53)
[2017-11-12 08:00] VITALS: BP 118/57
[2017-11-12 08:15] VITALS: BP 120/86
[2017-11-12] MEDS: PANTOPRAZOLE 40 MG IV IV SCH (09:10)
[2017-11-12] MEDS: DOCUSATE 50 MG/5 ML, 10ML UDC PO SCH ×2 (09:10→21:00)
[2017-11-12 10:45] VITALS: BP 123/57
[2017-11-12] MEDS: CEFTRIAXONE 1,000 MG in DEXTROSE 5% 50 ML IV SCH (13:15)
[2017-11-12] MEDS: ASPIRIN 81 MG TABLET CHEW PO SCH (16:00)
[2017-11-12] MEDS: ATORVASTATIN 40 MG TABLET PO SCH (21:00)
[2017-11-13] MEDS: HEPARIN 5,000 UNITS/ML, 1ML SQ SCH ×3 (01:38→17:37)
[2017-11-13] MEDS: ALBUTEROL/IPRATROPIUM 2.5MG/0.5MG, 3 ML INLINE SCH ×6 (02:17→21:18)
[2017-11-13 04:47] LABS: CHLORIDE 100 mmol/L (98-107)
[2017-11-13 04:48] LABS: MEAN CORPUSCULAR HEMOGLOBIN 28.4 pg (27.5-34.5); MEAN CORPUSCULAR HGB CONC 33.8 g/dL (33.2-36.2); MEAN PLATELET VOLUME 7.4 fL (7.4-10.4); PLATELET COUNT 460 x10^3/uL (130-400); RED BLOOD COUNT 2.69 x10^6/uL (4.38-5.82); RED CELL DISTRIBUTION WIDTH 14.3 % (9.4-14.8)
[2017-11-13 04:54] LABS: ALANINE AMINOTRANSFERASE 18 U/L (12-78); ALBUMIN 2.1 g/dL (3.4-5.0); ALKALINE PHOSPHATASE 335 U/L (45-117); ANION GAP 13 mmol/L (5-15); BILIRUBIN,TOTAL 0.7 mg/dL (0.2-1.0); CALCIUM 8.7 mg/dL (8.5-10.1); CREATININE 2.53 mg/dL (0.7-1.3); TOTAL PROTEIN 7.1 g/dL (6.4-8.2); TRIGLYCERIDES 187 mg/dL (50-200)
[2017-11-13] MEDS: INSULIN ASPART 100 UNITS/ML, PEN SQ-INSULIN SCH ×4 (05:00→22:15)
[2017-11-13 05:14] LABS: BASOPHILS # (AUTO) 0.04 x10^3/uL (0-0.1); BASOPHILS % (AUTO) 0 % (0-1); EOSINOPHILS # (AUTO) 0.03 x10^3/uL (0-0.4); EOSINOPHILS % (AUTO) 0 % (1-7); LYMPHOCYTES # (AUTO) 0.43 x10^3/uL (1-3.4); LYMPHOCYTES % (AUTO) 5 % (22-44); MD SCAN; MONOCYTES # (AUTO) 0.36 x10^3/uL (0.2-0.8); MONOCYTES % (AUTO) 4 % (2-9); NEUTROPHILS # (AUTO) 7.97 x10^3/uL (1.8-6.8); NEUTROPHILS % (AUTO) 90 % (42-75)
[2017-11-13] MEDS: INSULIN DETEMIR 100 UNITS/ML, PEN SQ-INSULIN SCH ×2 (05:52→17:41)
[2017-11-13] MEDS: DOCUSATE 50 MG/5 ML, 10ML UDC PO SCH ×2 (09:00→20:42)
[2017-11-13] MEDS: PANTOPRAZOLE 40 MG IV IV SCH (10:24)
[2017-11-13] MEDS: CEFTRIAXONE 1,000 MG in DEXTROSE 5% 50 ML IV SCH (15:06)
[2017-11-13] MEDS: ARANESP 100 MCG/ML **ESRD SQ SCH (17:36)
[2017-11-13] MEDS: ASPIRIN 81 MG TABLET CHEW PO SCH (17:36)
[2017-11-13] MEDS: ONDANSETRON 2MG/ML, 2ML IVPush PRN (17:46)
[2017-11-13] MEDS: ATORVASTATIN 40 MG TABLET PO SCH (22:15)
[2017-11-14] MEDS: ALBUTEROL/IPRATROPIUM 2.5MG/0.5MG, 3 ML INLINE SCH ×6 (01:53→23:00)
[2017-11-14] MEDS: HEPARIN 5,000 UNITS/ML, 1ML SQ SCH ×3 (02:34→16:38)
[2017-11-14] MEDS: INSULIN ASPART 100 UNITS/ML, PEN SQ-INSULIN SCH ×4 (05:04→22:30)
[2017-11-14 05:07] LABS: BASOPHILS # (AUTO) 0.02 x10^3/uL (0-0.1); BASOPHILS % (AUTO) 0 % (0-1); EOSINOPHILS # (AUTO) 0.06 x10^3/uL (0-0.4); EOSINOPHILS % (AUTO) 1 % (1-7); LYMPHOCYTES # (AUTO) 0.62 x10^3/uL (1-3.4); LYMPHOCYTES % (AUTO) 9 % (22-44); MD NO; MEAN CORPUSCULAR HEMOGLOBIN 28.4 pg (27.5-34.5); MEAN CORPUSCULAR HGB CONC 34.1 g/dL (33.2-36.2); MEAN CORPUSCULAR VOLUME 83.3 fL (81-97); MEAN PLATELET VOLUME 6.8 fL (7.4-10.4); MONOCYTES # (AUTO) 0.35 x10^3/uL (0.2-0.8); MONOCYTES % (AUTO) 5 % (2-9); NEUTROPHILS # (AUTO) 5.55 x10^3/uL (1.8-6.8); NEUTROPHILS % (AUTO) 84 % (42-75); PLATELET COUNT 464 x10^3/uL (130-400); RED BLOOD COUNT 2.98 x10^6/uL (4.38-5.82); RED CELL DISTRIBUTION WIDTH 13.7 % (9.4-14.8)
[2017-11-14 05:21] LABS: ANION GAP 10 mmol/L (5-15); CALCIUM 8.6 mg/dL (8.5-10.1); CHLORIDE 97 mmol/L (98-107); CREATININE 2.86 mg/dL (0.7-1.3)
[2017-11-14] MEDS: INSULIN DETEMIR 100 UNITS/ML, PEN SQ-INSULIN SCH ×2 (05:38→16:45)
[2017-11-14] MEDS: DOCUSATE 50 MG/5 ML, 10ML UDC PO SCH ×2 (09:00→20:39)
[2017-11-14] MEDS: PANTOPRAZOLE 40 MG IV IV SCH (09:45)
[2017-11-14] MEDS: ALBUMIN HUMAN 25% 100 ML IV PRN (12:00)
[2017-11-14] MEDS: ALBUMIN HUMAN 25% 50 ML IV PRN (13:30)
[2017-11-14] MEDS: CEFTRIAXONE 1,000 MG in DEXTROSE 5% 50 ML IV SCH (15:28)
[2017-11-14] MEDS: ASPIRIN 81 MG TABLET CHEW PO SCH (16:38)
[2017-11-14] MEDS: ATORVASTATIN 40 MG TABLET PO SCH (22:29)
[2017-11-15] MEDS: HEPARIN 5,000 UNITS/ML, 1ML SQ SCH ×3 (01:04→17:11)
[2017-11-15] MEDS: ALBUTEROL/IPRATROPIUM 2.5MG/0.5MG, 3 ML INLINE SCH ×6 (03:04→22:33)
[2017-11-15] MEDS: INSULIN DETEMIR 100 UNITS/ML, PEN SQ-INSULIN SCH ×2 (05:56→17:10)
[2017-11-15] MEDS: INSULIN ASPART 100 UNITS/ML, PEN SQ-INSULIN SCH ×3 (05:57→17:00)
[2017-11-15 06:06] LABS: BASOPHILS # (AUTO) 0.07 x10^3/uL (0-0.1); BASOPHILS % (AUTO) 1 % (0-1); EOSINOPHILS # (AUTO) 0.09 x10^3/uL (0-0.4); EOSINOPHILS % (AUTO) 2 % (1-7); LYMPHOCYTES # (AUTO) 0.61 x10^3/uL (1-3.4); LYMPHOCYTES % (AUTO) 11 % (22-44); MD NO; MEAN CORPUSCULAR HGB CONC 33.9 g/dL (33.2-36.2); MEAN CORPUSCULAR VOLUME 82.5 fL (81-97); MEAN PLATELET VOLUME 7.3 fL (7.4-10.4); MONOCYTES # (AUTO) 0.36 x10^3/uL (0.2-0.8); MONOCYTES % (AUTO) 7 % (2-9); NEUTROPHILS # (AUTO) 4.31 x10^3/uL (1.8-6.8); NEUTROPHILS % (AUTO) 79 % (42-75); PLATELET COUNT 443 x10^3/uL (130-400); RED BLOOD COUNT 3.38 x10^6/uL (4.38-5.82); RED CELL DISTRIBUTION WIDTH 13.2 % (9.4-14.8)
[2017-11-15 06:20] LABS: ANION GAP 14 mmol/L (5-15); CALCIUM 9.1 mg/dL (8.5-10.1); CHLORIDE 96 mmol/L (98-107); CREATININE 4.64 mg/dL (0.7-1.3)
[2017-11-15] MEDS: DOCUSATE 50 MG/5 ML, 10ML UDC PO SCH ×2 (09:00→20:58)
[2017-11-15] MEDS: PANTOPRAZOLE 40 MG IV IV SCH (09:59)
[2017-11-15] MEDS: ONDANSETRON 2MG/ML, 2ML IVPush PRN (15:54)
[2017-11-15] MEDS: ALBUMIN HUMAN 25% 50 ML IV PRN (16:15)
[2017-11-15] MEDS: ASPIRIN 81 MG TABLET CHEW PO SCH (17:10)
[2017-11-15] MEDS: ALBUMIN HUMAN 25% 100 ML IV PRN (18:00)
[2017-11-15] MEDS: ATORVASTATIN 40 MG TABLET PO SCH (20:58)
[2017-11-15] MEDS: CEFTRIAXONE 1,000 MG in SODIUM CHLORIDE 0.9% 50 ML IV SCH (20:58)
[2017-11-16] MEDS: HEPARIN 5,000 UNITS/ML, 1ML SQ SCH ×3 (00:07→16:45)
[2017-11-16] MEDS: INSULIN ASPART 100 UNITS/ML, PEN SQ-INSULIN SCH ×5 (00:07→22:36)
[2017-11-16] MEDS: ALBUTEROL/IPRATROPIUM 2.5MG/0.5MG, 3 ML INLINE SCH (01:30)
[2017-11-16] MEDS: INSULIN DETEMIR 100 UNITS/ML, PEN SQ-INSULIN SCH ×2 (06:02→16:46)
[2017-11-16 06:40] LABS: CALCIUM 8.7 mg/dL (8.5-10.1); CHLORIDE 94 mmol/L (98-107)
[2017-11-16 06:46] LABS: ALANINE AMINOTRANSFERASE 14 U/L (12-78); ALBUMIN 3.2 g/dL (3.4-5.0); ALKALINE PHOSPHATASE 225 U/L (45-117); ANION GAP 13 mmol/L (5-15); BILIRUBIN,TOTAL 0.7 mg/dL (0.2-1.0); CREATININE 3.43 mg/dL (0.7-1.3); TOTAL PROTEIN 8.7 g/dL (6.4-8.2)
[2017-11-16] MEDS: DOCUSATE 50 MG/5 ML, 10ML UDC PO SCH ×3 (08:24→20:14)
[2017-11-16] MEDS: PANTOPRAZOLE 40 MG IV IV SCH (08:24)
[2017-11-16] MEDS: ASPIRIN 81 MG TABLET CHEW PO SCH (16:45)
[2017-11-16 18:39] VITALS: BP 110/63
[2017-11-16] MEDS: CEFTRIAXONE 1,000 MG in SODIUM CHLORIDE 0.9% 50 ML IV SCH (19:53)
[2017-11-16] MEDS: ATORVASTATIN 40 MG TABLET PO SCH (22:36)
[2017-11-17] MEDS: HEPARIN 5,000 UNITS/ML, 1ML SQ SCH ×3 (01:27→17:35)
[2017-11-17 02:00] VITALS: BP 125/68
[2017-11-17 05:48] LABS: BASOPHILS # (AUTO) 0.09 x10^3/uL (0-0.1); BASOPHILS % (AUTO) 2 % (0-1); EOSINOPHILS # (AUTO) 0.14 x10^3/uL (0-0.4); EOSINOPHILS % (AUTO) 2 % (1-7); LYMPHOCYTES # (AUTO) 0.89 x10^3/uL (1-3.4); LYMPHOCYTES % (AUTO) 15 % (22-44); MD NO; MEAN CORPUSCULAR HEMOGLOBIN 28.1 pg (27.5-34.5); MEAN CORPUSCULAR HGB CONC 34.3 g/dL (33.2-36.2); MEAN CORPUSCULAR VOLUME 81.8 fL (81-97); MEAN PLATELET VOLUME 6.9 fL (7.4-10.4); MONOCYTES # (AUTO) 0.56 x10^3/uL (0.2-0.8); MONOCYTES % (AUTO) 10 % (2-9); NEUTROPHILS # (AUTO) 4.28 x10^3/uL (1.8-6.8); NEUTROPHILS % (AUTO) 72 % (42-75); PLATELET COUNT 384 x10^3/uL (130-400); RED BLOOD COUNT 3.42 x10^6/uL (4.38-5.82); RED CELL DISTRIBUTION WIDTH 13.2 % (9.4-14.8)
[2017-11-17] MEDS: INSULIN DETEMIR 100 UNITS/ML, PEN SQ-INSULIN SCH ×2 (05:52→18:18)
[2017-11-17 06:01] LABS: ALANINE AMINOTRANSFERASE 13 U/L (12-78); ALBUMIN 2.9 g/dL (3.4-5.0); ANION GAP 14 mmol/L (5-15); CALCIUM 8.6 mg/dL (8.5-10.1); CHLORIDE 92 mmol/L (98-107); CREATININE 5.15 mg/dL (0.7-1.3)
[2017-11-17 06:05] LABS: ALKALINE PHOSPHATASE 210 U/L (45-117); BILIRUBIN,TOTAL 0.5 mg/dL (0.2-1.0); TOTAL PROTEIN 8.2 g/dL (6.4-8.2)
[2017-11-17 06:57] VITALS: BP 130/76
[2017-11-17] MEDS: PANTOPRAZOLE 40 MG IV IV SCH (07:40)
[2017-11-17] MEDS: DOCUSATE 50 MG/5 ML, 10ML UDC PO SCH ×2 (07:40→21:00)
[2017-11-17] MEDS: INSULIN ASPART 100 UNITS/ML, PEN SQ-INSULIN SCH ×4 (08:43→22:08)
[2017-11-17 12:02] VITALS: BP 122/75
[2017-11-17] MEDS: SEVELAMER 800MG TABLET PO SCH ×2 (12:44→17:35)
[2017-11-17] MEDS: ASPIRIN 81 MG TABLET CHEW PO SCH (17:35)
[2017-11-17 20:00] VITALS: BP 109/66
[2017-11-17] MEDS: ATORVASTATIN 40 MG TABLET PO SCH (22:07)
[2017-11-18 02:00] VITALS: BP 109/58
[2017-11-18] MEDS: INSULIN DETEMIR 100 UNITS/ML, PEN SQ-INSULIN SCH ×2 (05:12→17:47)
[2017-11-18] MEDS: HEPARIN 5,000 UNITS/ML, 1ML SQ SCH ×3 (05:12→17:47)
[2017-11-18 07:34] VITALS: BP 115/68
[2017-11-18] MEDS: SEVELAMER 800MG TABLET PO SCH ×3 (08:29→17:47)
[2017-11-18] MEDS: PANTOPROZOLE 40MG TABLET PO SCH (08:30)
[2017-11-18] MEDS: INSULIN ASPART 100 UNITS/ML, PEN SQ-INSULIN SCH ×4 (08:31→21:15)
[2017-11-18] MEDS: SENNA/DOCUSATE TABLET PO PRN ×2 (08:32→21:16)
[2017-11-18] MEDS: DOCUSATE 50 MG/5 ML, 10ML UDC PO SCH ×2 (08:32→21:00)
[2017-11-18 13:40] VITALS: BP 105/61
[2017-11-18] MEDS ORDERED: LIDOCAINE 1%, 20ML ONE (15:39)
[2017-11-18] MEDS ORDERED: MIDAZOLAM 1 MG/ML, 2ML ONE ×2 (15:40→15:41)
[2017-11-18] MEDS ORDERED: FENTANYL PF 100 MCG/2ML ONE ×2 (15:40)
[2017-11-18] MEDS: ASPIRIN 81 MG TABLET CHEW PO SCH (17:47)
[2017-11-18 18:51] VITALS: BP 126/67
[2017-11-18] MEDS: ATORVASTATIN 40 MG TABLET PO SCH (21:16)
[2017-11-19] MEDS: HEPARIN 5,000 UNITS/ML, 1ML SQ SCH ×3 (01:08→17:33)
[2017-11-19 01:55] VITALS: BP 103/56
[2017-11-19] MEDS: INSULIN DETEMIR 100 UNITS/ML, PEN SQ-INSULIN SCH ×2 (05:30→17:00)
[2017-11-19 05:32] LABS: BASOPHILS # (AUTO) 0.08 x10^3/uL (0-0.1); BASOPHILS % (AUTO) 1 % (0-1); EOSINOPHILS % (AUTO) 3 % (1-7); LYMPHOCYTES # (AUTO) 1.16 x10^3/uL (1-3.4); LYMPHOCYTES % (AUTO) 16 % (22-44); MD NO; MEAN CORPUSCULAR HEMOGLOBIN 27.7 pg (27.5-34.5); MEAN CORPUSCULAR HGB CONC 33.5 g/dL (33.2-36.2); MEAN CORPUSCULAR VOLUME 82.6 fL (81-97); MEAN PLATELET VOLUME 6.9 fL (7.4-10.4); MONOCYTES # (AUTO) 0.66 x10^3/uL (0.2-0.8); MONOCYTES % (AUTO) 9 % (2-9); NEUTROPHILS # (AUTO) 5.17 x10^3/uL (1.8-6.8); NEUTROPHILS % (AUTO) 71 % (42-75); PLATELET COUNT 333 x10^3/uL (130-400); RED BLOOD COUNT 3.41 x10^6/uL (4.38-5.82); RED CELL DISTRIBUTION WIDTH 13.4 % (9.4-14.8)
[2017-11-19 05:41] LABS: CHLORIDE 96 mmol/L (98-107)
[2017-11-19 05:46] LABS: ALANINE AMINOTRANSFERASE 14 U/L (12-78); ALBUMIN 2.9 g/dL (3.4-5.0); ALKALINE PHOSPHATASE 183 U/L (45-117); ANION GAP 10 mmol/L (5-15); BILIRUBIN,TOTAL 0.4 mg/dL (0.2-1.0); CALCIUM 8.8 mg/dL (8.5-10.1); CREATININE 5.13 mg/dL (0.7-1.3)
[2017-11-19] MEDS: INSULIN ASPART 100 UNITS/ML, PEN SQ-INSULIN SCH ×4 (07:00→20:56)
[2017-11-19 07:53] VITALS: BP 116/70
[2017-11-19] MEDS: SEVELAMER 800MG TABLET PO SCH ×3 (08:00→17:00)
[2017-11-19] MEDS ORDERED: REGADENOSON 0.4 MG/5 ML SYRINGE ONE (08:43)
[2017-11-19] MEDS: DOCUSATE 50 MG/5 ML, 10ML UDC PO SCH ×3 (09:00→20:58)
[2017-11-19] MEDS: PANTOPROZOLE 40MG TABLET PO SCH (09:00)
[2017-11-19] MEDS: ASPIRIN 81 MG TABLET CHEW PO SCH (15:43)
[2017-11-19 20:00] VITALS: BP 98/60
[2017-11-19] MEDS: ATORVASTATIN 40 MG TABLET PO SCH (20:56)
[2017-11-20] MEDS: HEPARIN 5,000 UNITS/ML, 1ML SQ SCH ×3 (00:33→16:51)
[2017-11-20 01:25] VITALS: BP 120/64
[2017-11-20 05:06] LABS: BASOPHILS # (AUTO) 0.09 x10^3/uL (0-0.1); BASOPHILS % (AUTO) 1 % (0-1); EOSINOPHILS # (AUTO) 0.24 x10^3/uL (0-0.4); EOSINOPHILS % (AUTO) 3 % (1-7); LYMPHOCYTES % (AUTO) 16 % (22-44); MD NO; MEAN CORPUSCULAR HEMOGLOBIN 27.9 pg (27.5-34.5); MEAN CORPUSCULAR HGB CONC 34.4 g/dL (33.2-36.2); MEAN CORPUSCULAR VOLUME 81.2 fL (81-97); MEAN PLATELET VOLUME 7.2 fL (7.4-10.4); MONOCYTES % (AUTO) 12 % (2-9); NEUTROPHILS # (AUTO) 5.22 x10^3/uL (1.8-6.8); NEUTROPHILS % (AUTO) 68 % (42-75); PLATELET COUNT 311 x10^3/uL (130-400); RED BLOOD COUNT 3.53 x10^6/uL (4.38-5.82); RED CELL DISTRIBUTION WIDTH 13.5 % (9.4-14.8)
[2017-11-20 05:24] LABS: CHLORIDE 95 mmol/L (98-107)
[2017-11-20 05:40] LABS: ALANINE AMINOTRANSFERASE 11 U/L (12-78); ALBUMIN 2.9 g/dL (3.4-5.0); ALKALINE PHOSPHATASE 175 U/L (45-117); ANION GAP 9 mmol/L (5-15); BILIRUBIN,TOTAL 0.6 mg/dL (0.2-1.0); CALCIUM 8.6 mg/dL (8.5-10.1); TOTAL PROTEIN 8.2 g/dL (6.4-8.2)
[2017-11-20 07:22] VITALS: BP 114/71
[2017-11-20] MEDS: DOCUSATE 50 MG/5 ML, 10ML UDC PO SCH ×2 (09:00→20:26)
[2017-11-20] MEDS: INSULIN DETEMIR 100 UNITS/ML, PEN SQ-INSULIN SCH ×2 (09:00→19:13)
[2017-11-20] MEDS: INSULIN ASPART 100 UNITS/ML, PEN SQ-INSULIN SCH ×4 (09:00→21:16)
[2017-11-20] MEDS: ARANESP 100 MCG/ML **ESRD SQ SCH (09:01)
[2017-11-20] MEDS: PANTOPROZOLE 40MG TABLET PO SCH (09:01)
[2017-11-20] MEDS: SEVELAMER 800MG TABLET PO SCH ×3 (09:01→16:51)
[2017-11-20] MEDS ORDERED: PNEUMOCOCCAL 23 VACCINE IM-VACC ONE (12:30)
[2017-11-20] MEDS ORDERED: FLU VACC QS2017-18 (36MOS+) UP/PF 0.5 ML IM-VACC ONE (13:00)
[2017-11-20] MEDS ORDERED: PNEUMOCOCCAL VACC.PER PHARMACY IM ONE (13:00)
[2017-11-20 18:47] VITALS: BP 105/62
[2017-11-20] MEDS: ATORVASTATIN 40 MG TABLET PO SCH (20:26)
[2017-11-21] MEDS: HEPARIN 5,000 UNITS/ML, 1ML SQ SCH ×3 (01:22→17:12)
[2017-11-21 01:27] VITALS: BP 121/70
[2017-11-21 07:56] VITALS: BP 132/71
[2017-11-21] MEDS: SEVELAMER 800MG TABLET PO SCH ×3 (08:38→17:12)
[2017-11-21] MEDS: PANTOPROZOLE 40MG TABLET PO SCH (08:38)
[2017-11-21] MEDS: ASPIRIN 81 MG TABLET CHEW PO SCH (08:39)
[2017-11-21] MEDS: INSULIN DETEMIR 100 UNITS/ML, PEN SQ-INSULIN SCH ×2 (08:39→21:24)
[2017-11-21] MEDS: INSULIN ASPART 100 UNITS/ML, PEN SQ-INSULIN SCH ×4 (08:40→21:25)
[2017-11-21] MEDS: DOCUSATE 50 MG/5 ML, 10ML UDC PO SCH ×2 (08:41→21:06)
[2017-11-21 14:38] VITALS: BP 120/66
[2017-11-21 19:10] VITALS: BP 129/68
[2017-11-21] MEDS: ATORVASTATIN 40 MG TABLET PO SCH (21:06)
[2017-11-22] MEDS: HEPARIN 5,000 UNITS/ML, 1ML SQ SCH ×3 (01:08→17:21)
[2017-11-22 02:18] VITALS: BP 122/70
[2017-11-22 06:26] LABS: BASOPHILS # (AUTO) 0.06 x10^3/uL (0-0.1); BASOPHILS % (AUTO) 1 % (0-1); EOSINOPHILS # (AUTO) 0.24 x10^3/uL (0-0.4); EOSINOPHILS % (AUTO) 3 % (1-7); LYMPHOCYTES # (AUTO) 0.94 x10^3/uL (1-3.4); LYMPHOCYTES % (AUTO) 13 % (22-44); MD NO; MEAN CORPUSCULAR HEMOGLOBIN 27.5 pg (27.5-34.5); MEAN CORPUSCULAR HGB CONC 33.8 g/dL (33.2-36.2); MEAN CORPUSCULAR VOLUME 81.4 fL (81-97); MEAN PLATELET VOLUME 7.1 fL (7.4-10.4); MONOCYTES # (AUTO) 0.61 x10^3/uL (0.2-0.8); MONOCYTES % (AUTO) 9 % (2-9); NEUTROPHILS # (AUTO) 5.16 x10^3/uL (1.8-6.8); NEUTROPHILS % (AUTO) 74 % (42-75); PLATELET COUNT 312 x10^3/uL (130-400); RED BLOOD COUNT 3.45 x10^6/uL (4.38-5.82); RED CELL DISTRIBUTION WIDTH 13.1 % (9.4-14.8)
[2017-11-22 06:39] LABS: ALANINE AMINOTRANSFERASE 11 U/L (12-78); ALBUMIN 2.8 g/dL (3.4-5.0); ANION GAP 10 mmol/L (5-15); CALCIUM 8.6 mg/dL (8.5-10.1); CHLORIDE 97 mmol/L (98-107)
[2017-11-22 06:42] LABS: ALKALINE PHOSPHATASE 178 U/L (45-117); BILIRUBIN,TOTAL 0.5 mg/dL (0.2-1.0); CREATININE 4.46 mg/dL (0.7-1.3); TOTAL PROTEIN 7.8 g/dL (6.4-8.2)
[2017-11-22 07:37] VITALS: BP 138/77
[2017-11-22] MEDS: INSULIN ASPART 100 UNITS/ML, PEN SQ-INSULIN SCH ×3 (08:25→16:43)
[2017-11-22] MEDS: DOCUSATE 50 MG/5 ML, 10ML UDC PO SCH (08:26)
[2017-11-22] MEDS: INSULIN DETEMIR 100 UNITS/ML, PEN SQ-INSULIN SCH (08:26)
[2017-11-22] MEDS: ASPIRIN 81 MG TABLET CHEW PO SCH (08:26)
[2017-11-22] MEDS: SEVELAMER 800MG TABLET PO SCH ×3 (08:26→17:21)
[2017-11-22] MEDS: PANTOPROZOLE 40MG TABLET PO SCH (08:26)
[2017-11-22] MEDS ORDERED: PANT40TA5 PO (09:48)
[2017-11-22] MEDS ORDERED: INSU100I18 SQ-INSULIN (09:48)
[2017-11-22] MEDS ORDERED: ASPI-515 PO (09:48)
[2017-11-22] MEDS ORDERED: DARB100V SQ (09:48)
[2017-11-22] MEDS ORDERED: INSU100I28 SQ-INSULIN (09:48)
[2017-11-22] MEDS ORDERED: HEPA50002 SQ (09:48)
[2017-11-22] MEDS ORDERED: SEVE800T7 PO (09:48)
[2017-11-22] MEDS ORDERED: ERGO500017 PO (09:48)
[2017-11-22] MEDS ORDERED: ATOR40TA78 PO (09:48)
[2017-11-22] MEDS ORDERED: IRON SUCROSE COMPLEX 100MG/5ML IV SCH (10:00)
[2017-11-22 12:52] VITALS: BP 140/74
== END 2017-11-22 17:38 | DRG 871 ==
LOC: ED 20:34 → EDIP 21:29 → ICU 11-01 05:31 → 3NE 11-16 18:20 → 4WST 11-17 10:19
PROVIDERS: ADMIT Surgery; ATTEND Surgery
PROC: 5A1945Z Respiratory Ventilation, 24-96 Consecutive Hours (ICD-10-PCS; 2017-11-01)
PROC: 0BC68ZZ Extirpation of Matter from Right Lower Lobe Bronchus, Via Natural or Artificial Opening Endoscopic (ICD-10-PCS; 2017-11-01)
PROC: 0BCB8ZZ Extirpation of Matter from Left Lower Lobe Bronchus, Via Natural or Artificial Opening Endoscopic (ICD-10-PCS; 2017-11-01)
PROC: 0BH17EZ Insertion of Endotracheal Airway into Trachea, Via Natural or Artificial Opening (ICD-10-PCS; 2017-11-01)
PROC: 02HV33Z Insertion of Infusion Device into Superior Vena Cava, Percutaneous Approach (ICD-10-PCS; 2017-11-02)
PROC: B548ZZA Ultrasonography of Superior Vena Cava, Guidance (ICD-10-PCS; 2017-11-02)
PROC: 5A1D70Z Performance of Urinary Filtration, Intermittent, Less than 6 Hours Per Day (ICD-10-PCS; 2017-11-02)
PROC: 5A1D70Z Performance of Urinary Filtration, Intermittent, Less than 6 Hours Per Day (ICD-10-PCS; 2017-11-03)
PROC: 5A1D70Z Performance of Urinary Filtration, Intermittent, Less than 6 Hours Per Day (ICD-10-PCS; 2017-11-05)
PROC: 5A1D70Z Performance of Urinary Filtration, Intermittent, Less than 6 Hours Per Day (ICD-10-PCS; 2017-11-06)
PROC: 5A1D70Z Performance of Urinary Filtration, Intermittent, Less than 6 Hours Per Day (ICD-10-PCS; 2017-11-08)
PROC: 5A12012 Performance of Cardiac Output, Single, Manual (ICD-10-PCS; principal; 2017-11-10)
PROC: 5A1D70Z Performance of Urinary Filtration, Intermittent, Less than 6 Hours Per Day (ICD-10-PCS; 2017-11-10)
PROC: 5A1D70Z Performance of Urinary Filtration, Intermittent, Less than 6 Hours Per Day (ICD-10-PCS; 2017-11-11)
PROC: 5A09557 Assistance with Respiratory Ventilation, Greater than 96 Consecutive Hours, Continuous Positive Airway Pressure (ICD-10-PCS; 2017-11-11)
PROC: 5A1D70Z Performance of Urinary Filtration, Intermittent, Less than 6 Hours Per Day (ICD-10-PCS; 2017-11-12)
PROC: 30233N1 Transfusion of Nonautologous Red Blood Cells into Peripheral Vein, Percutaneous Approach (ICD-10-PCS; 2017-11-12)
PROC: 5A1D70Z Performance of Urinary Filtration, Intermittent, Less than 6 Hours Per Day (ICD-10-PCS; 2017-11-13)
PROC: 5A1D70Z Performance of Urinary Filtration, Intermittent, Less than 6 Hours Per Day (ICD-10-PCS; 2017-11-14)
PROC: 5A1D70Z Performance of Urinary Filtration, Intermittent, Less than 6 Hours Per Day (ICD-10-PCS; 2017-11-15)
PROC: 5A1D70Z Performance of Urinary Filtration, Intermittent, Less than 6 Hours Per Day (ICD-10-PCS; 2017-11-17)
PROC: 0JHD3XZ Insertion of Tunneled Vascular Access Device into Right Upper Arm Subcutaneous Tissue and Fascia, Percutaneous Approach (ICD-10-PCS; 2017-11-18)
PROC: 5A1D70Z Performance of Urinary Filtration, Intermittent, Less than 6 Hours Per Day (ICD-10-PCS; 2017-11-19)
DX: A41.01 Sepsis due to Methicillin susceptible Staphylococcus aureus (principal); E11.10 Type 2 diabetes mellitus with ketoacidosis without coma; I21.4 Non-ST elevation (NSTEMI) myocardial infarction; J96.01 Acute respiratory failure with hypoxia; I46.9 Cardiac arrest, cause unspecified; E43 Unspecified severe protein-calorie malnutrition; N17.0 Acute kidney failure with tubular necrosis; G93.41 Metabolic encephalopathy; J18.9 Pneumonia, unspecified organism; R65.21 Severe sepsis with septic shock; N18.6 End stage renal disease; J81.1 Chronic pulmonary edema; Z99.11 Dependence on respirator [ventilator] status; I48.0 Paroxysmal atrial fibrillation; E11.649 Type 2 diabetes mellitus with hypoglycemia without coma; D64.9 Anemia, unspecified; E87.6 Hypokalemia; I25.10 Atherosclerotic heart disease of native coronary artery without angina pectoris; K76.0 Fatty (change of) liver, not elsewhere classified; K80.20 Calculus of gallbladder without cholecystitis without obstruction; D69.6 Thrombocytopenia, unspecified; B95.1 Streptococcus, group B, as the cause of diseases classified elsewhere; E83.39 Other disorders of phosphorus metabolism; N25.0 Renal osteodystrophy; Z66 Do not resuscitate; Z51.5 Encounter for palliative care; E11.22 Type 2 diabetes mellitus with diabetic chronic kidney disease; Z82.5 Family history of asthma and other chronic lower respiratory diseases; Z87.891 Personal history of nicotine dependence; Z99.2 Dependence on renal dialysis; Z68.22 Body mass index [BMI] 22.0-22.9, adult; I25.2 Old myocardial infarction
CPT/HCPCS: 31622; 36415; 36556; 36558; 36569; 36600; 70450; 71010; 71045; 76700; 76770; 76937; 77001; 78452; 80048; 80053; 80202; 80307; 80329; 81001; 82010; 82040; 82140; 82306; 82533; 82542; 82550; 82728; 82803; 82805; 82962; 83036; 83540; 83550; 83605; 83690; 83735; 83930; 84100; 84145; 84443; 84478; 84484; 84550; 85025; 85379; 85520; 86022; 86480; 86704; 86706; 86708; 86803; 86850; 86900; 86923; 87040; 87070; 87077; 87081; 87086; 87147; 87186; 87205; 87340; 87400; 90686; 90732; 93005; 93017; 93306; 93970; 94002; 94003; 94150; 94640; 94660; 96365; 96366; 99156; 99157; J0696; J0882; J1644; J1756; J1815; J2250; J2405; J2543; J2704; J2785; J3010; J3370; J3480; J3490; J7613; J7620; P9047; A9502; C1750; C1751; C9113; C9898; G0480; J0282; J1630; J1642; J2060; J3475; J7030; J7040; J7050; J7060; P9016

== ENCOUNTER 2018-05-12 08:59 | Inpatient (IN) | payer OTHER ==
[~2018-05-12] VITALS: Ht 172.7 cm; Wt 72.3 kg
[~2018-05-12 08:59] MED LIST: ASPI-515 PO; ATOR40TA78 PO; DARB100V SQ; ERGO500017 PO; HEPA50002 SQ; INSU100I18 SQ-INSULIN; INSU100I28 SQ-INSULIN; PANT40TA5 PO; SEVE800T7 PO
[2018-05-12] MEDS ORDERED: SODIUM CHLORIDE FLUSH 10ML SYR IVF ONE (10:00)
[2018-05-12] MEDS ORDERED: SODIUM CHLORIDE 0.9% 1,000ML IVBOLUS ONE (10:00)
[2018-05-12 10:01] LABS: BASOPHILS # (AUTO) 0.01 x10^3/uL (0-0.1); BASOPHILS % (AUTO) 0 % (0-1); EOSINOPHILS # (AUTO) 0.04 x10^3/uL (0-0.4); EOSINOPHILS % (AUTO) 1 % (1-7); LYMPHOCYTES # (AUTO) 0.95 x10^3/uL (1-3.4); LYMPHOCYTES % (AUTO) 19 % (22-44); MD NO; MEAN CORPUSCULAR HEMOGLOBIN 30.8 pg (27.5-34.5); MEAN CORPUSCULAR HGB CONC 35.5 g/dL (33.2-36.2); MEAN CORPUSCULAR VOLUME 86.9 fL (81-97); MEAN PLATELET VOLUME 6.7 fL (7.4-10.4); MONOCYTES # (AUTO) 0.29 x10^3/uL (0.2-0.8); MONOCYTES % (AUTO) 6 % (2-9); NEUTROPHILS # (AUTO) 3.71 x10^3/uL (1.8-6.8); NEUTROPHILS % (AUTO) 74 % (42-75); PLATELET COUNT 262 x10^3/uL (130-400); RED BLOOD COUNT 3.74 x10^6/uL (4.38-5.82); RED CELL DISTRIBUTION WIDTH 13.1 % (9.4-14.8)
[2018-05-12 10:14] LABS: ALANINE AMINOTRANSFERASE 42 U/L (12-78); ALBUMIN 3.4 g/dL (3.4-5.0); ANION GAP 7 mmol/L (5-15); CALCIUM 8.6 mg/dL (8.5-10.1); CHLORIDE 98 mmol/L (98-107); CREATININE 0.76 mg/dL (0.7-1.3)
[2018-05-12 10:18] LABS: ALKALINE PHOSPHATASE 60 U/L (45-117); BILIRUBIN,TOTAL 0.6 mg/dL (0.2-1.0); TOTAL PROTEIN 6.3 g/dL (6.4-8.2); TROPONIN I < 0.015 ng/mL (0.000-0.045)
[2018-05-12 11:25] LABS: MICROSCOPIC INDICATED
[2018-05-12 12:10] LABS: CULTURE INDICATED? NO
[2018-05-12] MEDS ORDERED: CYAN50008 PO (13:25)
[2018-05-12] MEDS ORDERED: INSU100V13 SQ (13:25)
[2018-05-12] MEDS ORDERED: VIT1CAPS42 PO (13:25)
[2018-05-12] MEDS ORDERED: GLIP5TAB10 PO (13:25)
[2018-05-12] MEDS ORDERED: OMEP-110 PO (13:25)
[2018-05-12] MEDS ORDERED: DOCUSATE 100 MG CAPSULE PO PRN (13:30)
[2018-05-12] MEDS ORDERED: hydrALAzine 20 MG/ML, 1ML IVPush PRN (13:30)
[2018-05-12] MEDS ORDERED: BISACODYL 10 MG SUPP PR PRN (13:30)
[2018-05-12 13:34] VITALS: BP 186/95
[2018-05-12] MEDS: LABETALOL 5MG/ML, 20ML IVPush PRN (13:46)
[2018-05-12 14:47] VITALS: BP 139/77
[2018-05-12] MEDS: HEPARIN 5,000 UNITS/ML, 1ML SQ SCH ×2 (14:48→23:06)
[2018-05-12 19:38] VITALS: BP 148/78
[2018-05-12] MEDS: ACETAMINOPHEN 325 MG TABLET PO PRN (21:49)
[2018-05-12] MEDS ORDERED: DEXTROSE 50%, 50ML SYRINGE IVPush PRN (22:30)
[2018-05-12] MEDS ORDERED: GLUCAGON 1 MG IM PRN (22:30)
[2018-05-12] MEDS ORDERED: DEXTROSE 4 GM TAB.CHEW PO PRN (22:30)
[2018-05-12 22:54] LABS: HEMOGLOBIN A1C 6.2 % (4.2-6.3)
[2018-05-12] MEDS: SODIUM CHLORIDE FLUSH 10ML SYR IVF SCH (23:06)
[2018-05-12] MEDS: INSULIN GLARGINE 100 UNITS/ML, PEN SQ-INSULIN SCH (23:15)
[2018-05-13 02:41] VITALS: BP 141/78
[2018-05-13 05:38] LABS: BASOPHILS # (AUTO) 0.02 x10^3/uL (0-0.1); BASOPHILS % (AUTO) 0 % (0-1); EOSINOPHILS # (AUTO) 0.04 x10^3/uL (0-0.4); EOSINOPHILS % (AUTO) 1 % (1-7); LYMPHOCYTES % (AUTO) 26 % (22-44); MD NO; MEAN CORPUSCULAR HEMOGLOBIN 30.8 pg (27.5-34.5); MEAN CORPUSCULAR HGB CONC 35.7 g/dL (33.2-36.2); MEAN CORPUSCULAR VOLUME 86.4 fL (81-97); MEAN PLATELET VOLUME 6.9 fL (7.4-10.4); MONOCYTES # (AUTO) 0.32 x10^3/uL (0.2-0.8); MONOCYTES % (AUTO) 8 % (2-9); NEUTROPHILS # (AUTO) 2.77 x10^3/uL (1.8-6.8); NEUTROPHILS % (AUTO) 65 % (42-75); PLATELET COUNT 245 x10^3/uL (130-400); RED BLOOD COUNT 3.59 x10^6/uL (4.38-5.82); RED CELL DISTRIBUTION WIDTH 12.8 % (9.4-14.8)
[2018-05-13] MEDS: ONDANSETRON 2MG/ML, 2ML IVPush PRN (05:38)
[2018-05-13 05:53] LABS: ANION GAP 7 mmol/L (5-15); CALCIUM 8.3 mg/dL (8.5-10.1); CHLORIDE 103 mmol/L (98-107)
[2018-05-13 06:04] LABS: CREATININE 0.76 mg/dL (0.7-1.3); THYROID STIMULATING HORMONE 0.872 mIU/L (0.358-3.740)
[2018-05-13] MEDS: INSULIN LISPRO 100 UNITS/ML, PEN SQ-INSULIN SCH ×4 (07:00→20:44)
[2018-05-13 07:04] VITALS: BP 130/77
[2018-05-13] MEDS ORDERED: ASPIRIN 81 MG TABLET EC PO SCH (09:00)
[2018-05-13] MEDS ORDERED: GADOBUTROL 7.5 MMOL/7.5 ML VIAL ONE ×2 (10:15→16:18)
[2018-05-13] MEDS: ACETAMINOPHEN 325 MG TABLET PO PRN ×2 (10:32→17:36)
[2018-05-13] MEDS: HEPARIN 5,000 UNITS/ML, 1ML SQ SCH ×2 (10:33→16:47)
[2018-05-13] MEDS: SODIUM CHLORIDE FLUSH 10ML SYR IVF SCH ×2 (10:33→20:43)
[2018-05-13] MEDS: CYANOCOBALAMIN 1,000 MCG TABLET PO SCH (10:34)
[2018-05-13] MEDS: OMEPRAZOLE 20 MG CAPSULE.DR PO SCH (10:34)
[2018-05-13] MEDS ORDERED: DEXAMETHASONE 4 MG/ML, 1ML IVPush ONE (11:00)
[2018-05-13 14:06] VITALS: BP 172/94
[2018-05-13] MEDS: LABETALOL 5MG/ML, 20ML IVPush PRN (14:11)
[2018-05-13] MEDS ORDERED: DEXAMETHASONE 4 MG/ML, 1ML IVPush SCH (15:00)
[2018-05-13 18:50] VITALS: BP 156/82
[2018-05-13] MEDS: INSULIN GLARGINE 100 UNITS/ML, PEN SQ-INSULIN SCH (20:44)
[2018-05-13] MEDS: ATORVASTATIN 40 MG TABLET PO SCH (20:45)
[2018-05-14] MEDS: ACETAMINOPHEN 325 MG TABLET PO PRN ×3 (00:40→21:07)
[2018-05-14 01:08] VITALS: BP 138/72
[2018-05-14 05:04] LABS: BASOPHILS % (AUTO) 0 % (0-1); EOSINOPHILS % (AUTO) 0 % (1-7); LYMPHOCYTES # (AUTO) 0.84 x10^3/uL (1-3.4); LYMPHOCYTES % (AUTO) 15 % (22-44); MD NO; MEAN CORPUSCULAR HEMOGLOBIN 30.8 pg (27.5-34.5); MEAN CORPUSCULAR HGB CONC 35.4 g/dL (33.2-36.2); MEAN CORPUSCULAR VOLUME 87.1 fL (81-97); MEAN PLATELET VOLUME 7.2 fL (7.4-10.4); MONOCYTES # (AUTO) 0.34 x10^3/uL (0.2-0.8); MONOCYTES % (AUTO) 6 % (2-9); NEUTROPHILS % (AUTO) 80 % (42-75); PLATELET COUNT 260 x10^3/uL (130-400); RED CELL DISTRIBUTION WIDTH 12.5 % (9.4-14.8)
[2018-05-14 05:07] LABS: CHLORIDE 99 mmol/L (98-107)
[2018-05-14 05:13] LABS: ALANINE AMINOTRANSFERASE 32 U/L (12-78); ALBUMIN 2.9 g/dL (3.4-5.0); ALKALINE PHOSPHATASE 55 U/L (45-117); ANION GAP 7 mmol/L (5-15); BILIRUBIN,TOTAL 0.4 mg/dL (0.2-1.0); CALCIUM 8.2 mg/dL (8.5-10.1); CREATININE 0.82 mg/dL (0.7-1.3); TOTAL PROTEIN 5.6 g/dL (6.4-8.2)
[2018-05-14 08:58] VITALS: BP 159/82
[2018-05-14] MEDS: INSULIN LISPRO 100 UNITS/ML, PEN SQ-INSULIN SCH ×4 (09:17→20:27)
[2018-05-14] MEDS: OMEPRAZOLE 20 MG CAPSULE.DR PO SCH (09:18)
[2018-05-14] MEDS: SODIUM CHLORIDE FLUSH 10ML SYR IVF SCH ×2 (09:18→20:27)
[2018-05-14] MEDS: CYANOCOBALAMIN 1,000 MCG TABLET PO SCH (09:18)
[2018-05-14] MEDS ORDERED: LIDOCAINE-MPF 1%, 5ML ONE (15:52)
[2018-05-14] MEDS ORDERED: GADOBUTROL 7.5 MMOL/7.5 ML VIAL ONE (16:07)
[2018-05-14 17:27] LABS: GLUCOSE, CSF 101 mg/dL (40-80); TOTAL PROTEIN,CSF 149 mg/dL (15-45)
[2018-05-14 17:30] VITALS: BP 155/82
[2018-05-14 19:54] VITALS: BP 127/66
[2018-05-14] MEDS: ATORVASTATIN 40 MG TABLET PO SCH (20:27)
[2018-05-14] MEDS: INSULIN GLARGINE 100 UNITS/ML, PEN SQ-INSULIN SCH (21:08)
[2018-05-15 01:25] VITALS: BP 117/62
[2018-05-15] MEDS: ACETAMINOPHEN 325 MG TABLET PO PRN ×3 (05:07→21:09)
[2018-05-15 06:35] VITALS: BP 138/79
[2018-05-15] MEDS: INSULIN LISPRO 100 UNITS/ML, PEN SQ-INSULIN SCH ×4 (09:04→21:00)
[2018-05-15] MEDS: OMEPRAZOLE 20 MG CAPSULE.DR PO SCH (09:04)
[2018-05-15] MEDS: SODIUM CHLORIDE FLUSH 10ML SYR IVF SCH ×2 (09:04→21:09)
[2018-05-15] MEDS: CYANOCOBALAMIN 1,000 MCG TABLET PO SCH (09:04)
[2018-05-15] MEDS: POLYETHYLENE GLYCOL 17 GM PACKET PO PRN (09:11)
[2018-05-15] MEDS ORDERED: ACETAMINOPHEN 325 MG TABLET PO PRN (11:30)
[2018-05-15] MEDS: DIPHENHYDRAMINE 50 MG/ML, 1ML IVPush SCH (12:14)
[2018-05-15 13:53] VITALS: BP 176/95
[2018-05-15] MEDS: IMMUNE GLOB (GAMUNEX) 10GM/100ML IV SCH (14:51)
[2018-05-15 15:09] VITALS: BP 162/86
[2018-05-15 20:48] VITALS: BP 148/78
[2018-05-15] MEDS: ATORVASTATIN 40 MG TABLET PO SCH (21:08)
[2018-05-15] MEDS: INSULIN GLARGINE 100 UNITS/ML, PEN SQ-INSULIN SCH (21:38)
[2018-05-16 01:57] VITALS: BP 163/83
[2018-05-16 05:08] LABS: BASOPHILS # (AUTO) 0.01 x10^3/uL (0-0.1); BASOPHILS % (AUTO) 0 % (0-1); EOSINOPHILS # (AUTO) 0.08 x10^3/uL (0-0.4); EOSINOPHILS % (AUTO) 2 % (1-7); LYMPHOCYTES # (AUTO) 0.79 x10^3/uL (1-3.4); LYMPHOCYTES % (AUTO) 16 % (22-44); MD NO; MEAN CORPUSCULAR HEMOGLOBIN 30.1 pg (27.5-34.5); MEAN CORPUSCULAR HGB CONC 34.7 g/dL (33.2-36.2); MEAN CORPUSCULAR VOLUME 86.6 fL (81-97); MEAN PLATELET VOLUME 6.3 fL (7.4-10.4); MONOCYTES # (AUTO) 0.32 x10^3/uL (0.2-0.8); MONOCYTES % (AUTO) 7 % (2-9); NEUTROPHILS # (AUTO) 3.66 x10^3/uL (1.8-6.8); NEUTROPHILS % (AUTO) 75 % (42-75); PLATELET COUNT 246 x10^3/uL (130-400); RED BLOOD COUNT 3.89 x10^6/uL (4.38-5.82); RED CELL DISTRIBUTION WIDTH 12.8 % (9.4-14.8)
[2018-05-16 05:18] LABS: CHLORIDE 100 mmol/L (98-107)
[2018-05-16 05:35] LABS: ALANINE AMINOTRANSFERASE 35 U/L (12-78); ALBUMIN 3.1 g/dL (3.4-5.0); ALKALINE PHOSPHATASE 58 U/L (45-117); ANION GAP 8 mmol/L (5-15); BILIRUBIN,TOTAL 0.7 mg/dL (0.2-1.0); CALCIUM 8.6 mg/dL (8.5-10.1); CREATININE 0.78 mg/dL (0.7-1.3); TOTAL PROTEIN 6.5 g/dL (6.4-8.2)
[2018-05-16] MEDS: ACETAMINOPHEN 325 MG TABLET PO PRN ×3 (05:46→20:22)
[2018-05-16] MEDS: INSULIN LISPRO 100 UNITS/ML, PEN SQ-INSULIN SCH ×4 (07:00→20:23)
[2018-05-16 09:26] VITALS: BP 172/87
[2018-05-16] MEDS: IMMUNE GLOB (GAMUNEX) 10GM/100ML IV SCH (10:01)
[2018-05-16] MEDS: DIPHENHYDRAMINE 50 MG/ML, 1ML IVPush SCH (10:01)
[2018-05-16] MEDS: SODIUM CHLORIDE FLUSH 10ML SYR IVF SCH ×2 (10:02→20:22)
[2018-05-16] MEDS: OMEPRAZOLE 20 MG CAPSULE.DR PO SCH (10:02)
[2018-05-16] MEDS: CYANOCOBALAMIN 1,000 MCG TABLET PO SCH (10:02)
[2018-05-16] MEDS: AMLODIPINE 5 MG TABLET PO SCH (10:02)
[2018-05-16 14:33] VITALS: BP 160/84
[2018-05-16 19:30] VITALS: BP 167/84
[2018-05-16] MEDS: ATORVASTATIN 40 MG TABLET PO SCH (20:22)
[2018-05-16] MEDS: INSULIN GLARGINE 100 UNITS/ML, PEN SQ-INSULIN SCH (20:23)
[2018-05-17 02:00] VITALS: BP 129/73
[2018-05-17 05:12] LABS: ALBUMIN 2.7 g/dL (3.4-5.0); ANION GAP 8 mmol/L (5-15); CALCIUM 8.7 mg/dL (8.5-10.1); CHLORIDE 99 mmol/L (98-107)
[2018-05-17 05:18] LABS: ALANINE AMINOTRANSFERASE 28 U/L (12-78); ALKALINE PHOSPHATASE 53 U/L (45-117); BILIRUBIN,TOTAL 0.6 mg/dL (0.2-1.0); CREATININE 0.73 mg/dL (0.7-1.3); TOTAL PROTEIN 6.6 g/dL (6.4-8.2)
[2018-05-17 05:21] LABS: BASOPHILS # (AUTO) 0.02 x10^3/uL (0-0.1); BASOPHILS % (AUTO) 0 % (0-1); EOSINOPHILS % (AUTO) 2 % (1-7); LYMPHOCYTES # (AUTO) 0.92 x10^3/uL (1-3.4); LYMPHOCYTES % (AUTO) 19 % (22-44); MD NO; MEAN CORPUSCULAR HEMOGLOBIN 29.9 pg (27.5-34.5); MEAN CORPUSCULAR HGB CONC 34.9 g/dL (33.2-36.2); MEAN CORPUSCULAR VOLUME 85.6 fL (81-97); MEAN PLATELET VOLUME 6.6 fL (7.4-10.4); MONOCYTES # (AUTO) 0.44 x10^3/uL (0.2-0.8); MONOCYTES % (AUTO) 9 % (2-9); NEUTROPHILS # (AUTO) 3.33 x10^3/uL (1.8-6.8); NEUTROPHILS % (AUTO) 69 % (42-75); PLATELET COUNT 224 x10^3/uL (130-400); RED BLOOD COUNT 3.71 x10^6/uL (4.38-5.82); RED CELL DISTRIBUTION WIDTH 12.8 % (9.4-14.8)
[2018-05-17] MEDS: ACETAMINOPHEN 325 MG TABLET PO PRN ×3 (05:31→20:29)
[2018-05-17] MEDS: INSULIN LISPRO 100 UNITS/ML, PEN SQ-INSULIN SCH ×4 (07:00→20:06)
[2018-05-17] MEDS: SODIUM CHLORIDE FLUSH 10ML SYR IVF SCH ×2 (09:00→20:05)
[2018-05-17] MEDS: OMEPRAZOLE 20 MG CAPSULE.DR PO SCH (09:14)
[2018-05-17] MEDS: AMLODIPINE 5 MG TABLET PO SCH (09:15)
[2018-05-17] MEDS: DIPHENHYDRAMINE 50 MG/ML, 1ML IVPush SCH (09:15)
[2018-05-17] MEDS: CYANOCOBALAMIN 1,000 MCG TABLET PO SCH (09:15)
[2018-05-17] MEDS: IMMUNE GLOB (GAMUNEX) 10GM/100ML IV SCH (10:10)
[2018-05-17 10:20] VITALS: BP 179/87
[2018-05-17 11:21] VITALS: BP 156/81
[2018-05-17 13:12] VITALS: BP 174/89
[2018-05-17] MEDS: LABETALOL 5MG/ML, 20ML IVPush PRN (13:18)
[2018-05-17 14:23] VITALS: BP 160/83
[2018-05-17 18:32] VITALS: BP 152/81
[2018-05-17] MEDS: ATORVASTATIN 40 MG TABLET PO SCH (20:04)
[2018-05-17] MEDS: INSULIN GLARGINE 100 UNITS/ML, PEN SQ-INSULIN SCH (20:05)
[2018-05-18 00:27] VITALS: BP 128/72
[2018-05-18] MEDS: INSULIN LISPRO 100 UNITS/ML, PEN SQ-INSULIN SCH ×4 (07:00→20:37)
[2018-05-18 07:25] VITALS: BP 156/87
[2018-05-18] MEDS: AMLODIPINE 5 MG TABLET PO SCH (10:03)
[2018-05-18] MEDS: CYANOCOBALAMIN 1,000 MCG TABLET PO SCH (10:03)
[2018-05-18] MEDS: OMEPRAZOLE 20 MG CAPSULE.DR PO SCH (10:03)
[2018-05-18] MEDS: ACETAMINOPHEN 325 MG TABLET PO PRN ×2 (10:04→19:39)
[2018-05-18] MEDS: DIPHENHYDRAMINE 50 MG/ML, 1ML IVPush SCH (10:04)
[2018-05-18] MEDS: SODIUM CHLORIDE FLUSH 10ML SYR IVF SCH ×2 (10:05→19:39)
[2018-05-18] MEDS: IMMUNE GLOB (GAMUNEX) 10GM/100ML IV SCH (10:58)
[2018-05-18 15:37] VITALS: BP 175/90
[2018-05-18] MEDS: LABETALOL 5MG/ML, 20ML IVPush PRN (15:41)
[2018-05-18 16:24] VITALS: BP 160/79
[2018-05-18] MEDS: ATORVASTATIN 40 MG TABLET PO SCH (19:39)
[2018-05-18] MEDS: INSULIN GLARGINE 100 UNITS/ML, PEN SQ-INSULIN SCH (20:36)
[2018-05-18 20:57] VITALS: BP 164/81
[2018-05-19 01:59] VITALS: BP 148/78
[2018-05-19] MEDS: INSULIN LISPRO 100 UNITS/ML, PEN SQ-INSULIN SCH ×4 (09:23→21:09)
[2018-05-19 09:26] VITALS: BP 121/73
[2018-05-19] MEDS: ACETAMINOPHEN 325 MG TABLET PO PRN ×2 (09:29→21:08)
[2018-05-19] MEDS: CYANOCOBALAMIN 1,000 MCG TABLET PO SCH (09:29)
[2018-05-19] MEDS: DIPHENHYDRAMINE 50 MG/ML, 1ML IVPush SCH (09:29)
[2018-05-19] MEDS: OMEPRAZOLE 20 MG CAPSULE.DR PO SCH (09:29)
[2018-05-19] MEDS: AMLODIPINE 5 MG TABLET PO SCH (09:29)
[2018-05-19] MEDS: SODIUM CHLORIDE FLUSH 10ML SYR IVF SCH ×2 (09:30→21:00)
[2018-05-19] MEDS: IMMUNE GLOB (GAMUNEX) 10GM/100ML IV SCH (10:19)
[2018-05-19 15:05] VITALS: BP 162/81
[2018-05-19 19:30] VITALS: BP 144/80
[2018-05-19] MEDS: INSULIN GLARGINE 100 UNITS/ML, PEN SQ-INSULIN SCH (21:08)
[2018-05-19] MEDS: ATORVASTATIN 40 MG TABLET PO SCH (21:08)
[2018-05-20 02:45] VITALS: BP 144/59
[2018-05-20] MEDS ORDERED: ONDANSETRON ODT 4 MG ONE (03:12)
[2018-05-20] MEDS: ONDANSETRON 2MG/ML, 2ML IVPush PRN (03:15)
[2018-05-20] MEDS: INSULIN LISPRO 100 UNITS/ML, PEN SQ-INSULIN SCH ×2 (07:00→12:03)
[2018-05-20 08:14] VITALS: BP 105/68
[2018-05-20] MEDS: AMLODIPINE 5 MG TABLET PO SCH (08:23)
[2018-05-20] MEDS: ACETAMINOPHEN 325 MG TABLET PO PRN (08:23)
[2018-05-20] MEDS: OMEPRAZOLE 20 MG CAPSULE.DR PO SCH (08:23)
[2018-05-20] MEDS: CYANOCOBALAMIN 1,000 MCG TABLET PO SCH (08:23)
[2018-05-20] MEDS: SODIUM CHLORIDE FLUSH 10ML SYR IVF SCH (08:23)
[2018-05-20] MEDS: DIPHENHYDRAMINE 50 MG/ML, 1ML IVPush SCH (08:23)
[2018-05-20] MEDS: POLYETHYLENE GLYCOL 17 GM PACKET PO PRN (08:24)
[2018-05-20] MEDS ORDERED: AMLO5TAB2 PO (12:23)
== END 2018-05-20 14:25 | disposition short-term general hospital (02) | DRG 95 ==
LOC: ED 09:50 → EDIP 11:44 → 3NE 12:45 → 4WST 05-14 07:58
PROVIDERS: ADMIT Hospitalist; ATTEND Hospitalist
PROC: 009U3ZZ Drainage of Spinal Canal, Percutaneous Approach (ICD-10-PCS; principal; 2018-05-14)
PROC: B01B1ZZ Fluoroscopy of Spinal Cord using Low Osmolar Contrast (ICD-10-PCS; 2018-05-14)
DX: G61.0 Guillain-Barre syndrome (principal); E87.1 Hypo-osmolality and hyponatremia; G82.20 Paraplegia, unspecified; Z99.11 Dependence on respirator [ventilator] status; G61.81 Chronic inflammatory demyelinating polyneuritis; D64.9 Anemia, unspecified; M47.9 Spondylosis, unspecified; E11.42 Type 2 diabetes mellitus with diabetic polyneuropathy; I48.91 Unspecified atrial fibrillation; K21.9 Gastro-esophageal reflux disease without esophagitis; K80.20 Calculus of gallbladder without cholecystitis without obstruction; M25.78 Osteophyte, vertebrae; M54.10 Radiculopathy, site unspecified; R32 Unspecified urinary incontinence; Z79.4 Long term (current) use of insulin; Z79.899 Other long term (current) drug therapy; Z86.74 Personal history of sudden cardiac arrest; I25.2 Old myocardial infarction; Z87.01 Personal history of pneumonia (recurrent)
CPT/HCPCS: 36415; 62270; 70553; 71045; 72156; 72157; 72158; 80048; 80053; 81001; 82040; 82042; 82164; 82550; 82784; 82945; 82962; 83036; 83735; 84100; 84157; 84443; 84484; 85025; 86255; 86592; 86617; 86788; 86789; 87252; 89051; 93005; 99285; A9585; J1100; J1561; J1644; J2405; J1200; J1815; J7030

== ENCOUNTER 2018-10-11 17:04 | Inpatient (IN) | payer OTHER ==
[~2018-10-11] VITALS: Ht 185.4 cm; Wt 74.9 kg
[~2018-10-11 17:04] MED LIST changes: +AMLO-150 PO; +CYAN50008 PO; +GLIP5TAB10 PO; +INSU100V13 SQ; +OMEP-110 PO; +VIT1CAPS42 PO
[2018-10-11 18:04] LABS: BASOPHILS # (AUTO) 0.06 x10^3/uL (0-0.1); BASOPHILS % (AUTO) 1 % (0-1); EOSINOPHILS # (AUTO) 0.17 x10^3/uL (0-0.4); EOSINOPHILS % (AUTO) 2 % (1-7); LYMPHOCYTES # (AUTO) 0.93 x10^3/uL (1-3.4); LYMPHOCYTES % (AUTO) 10 % (22-44); MD NO; MEAN CORPUSCULAR HEMOGLOBIN 29.5 pg (27.5-34.5); MEAN CORPUSCULAR HGB CONC 34.2 g/dL (33.2-36.2); MEAN CORPUSCULAR VOLUME 86.2 fL (81-97); MEAN PLATELET VOLUME 8.1 fL (7.4-10.4); MONOCYTES % (AUTO) 6 % (2-9); NEUTROPHILS % (AUTO) 82 % (42-75); PLATELET COUNT 298 x10^3/uL (130-400); RED BLOOD COUNT 3.61 x10^6/uL (4.38-5.82); RED CELL DISTRIBUTION WIDTH 14.3 % (9.4-14.8)
[2018-10-11 18:16] LABS: ALBUMIN 2.4 g/dL (3.4-5.0); ANION GAP 6 mmol/L (5-15); CALCIUM 7.9 mg/dL (8.5-10.1); CHLORIDE 109 mmol/L (98-107)
[2018-10-11 18:24] LABS: ALANINE AMINOTRANSFERASE 33 U/L (12-78); ALKALINE PHOSPHATASE 235 U/L (45-117); BILIRUBIN,TOTAL 0.3 mg/dL (0.2-1.0); TOTAL PROTEIN 6.3 g/dL (6.4-8.2)
--- NOTE | 2018-10-11 19:10 | NUR ---
Report from Clyde GUIDO. Pt had cxr completed. catheter clamped for urine sample. Pt resting, monitor in place. friend at bedside. no acute distress noted.
--- NOTE | 2018-10-11 19:13 | NUR ---
Pt to CT via [facility].
[2018-10-11] MEDS ORDERED: OMNIPAQUE 350 MG/ML, 100ML BOTTLE ONE (19:36)
--- NOTE | 2018-10-11 19:39 | NUR ---
Pt return from imaging, urine collected from clamped catheter. Pt resting comfortably, monitor in place. awaiting CT results. no distress noted, call light in reach.
[2018-10-11] MEDS ORDERED: FUROSEMIDE 40 MG/4 ML IV ONE (20:00)
[2018-10-11 20:08] LABS: MICROSCOPIC AUTO
[2018-10-11 20:15] LABS: CULTURE INDICATED? YES
--- NOTE | 2018-10-11 20:20 | NUR ---
EKG complete. Pt continues to rest in bed, no distress noted.
[2018-10-11] MEDS ORDERED: FUROSEMIDE 40 MG/4 ML ONE (20:24)
[2018-10-11] MEDS ORDERED: AMPICILLIN/SULBACTAM 3 GM in SODIUM CHLORIDE 0.9% 100 ML IV ONE (20:30)
[2018-10-11 20:32] LABS: TROPONIN I 0.038 ng/mL (0.000-0.045)
--- NOTE | 2018-10-11 20:32 | NUR ---
MONICA RN: PT MEDICATED PER EMAR. 5 RIGHTS ADDRESSED.
--- NOTE | 2018-10-11 20:37 | NUR ---
FLOAT RN: 725ML OF DARK, FOUL SMELLING URINE EMPTIED FROM [place]. CLOUDINESS NOTED IN GUNDERSON TUBING
[2018-10-11] MEDS ORDERED: OMEP-110 PO (21:06)
[2018-10-11] MEDS ORDERED: GABA600T2 PO (21:06)
[2018-10-11] MEDS ORDERED: TAMS0.4C2 PO (21:06)
[2018-10-11] MEDS ORDERED: FLUD0.1T PO (21:06)
--- NOTE | 2018-10-11 21:14 | NUR ---
Provider to bedside for pt update complete. pt to admit. Report to Nae RN. Pt to go to room.
[2018-10-11] MEDS ORDERED: INSU100I28 SC (21:19)
[2018-10-11 21:35] VITALS: BP 151/81
[2018-10-11] MEDS ORDERED: NYST1POW TP (21:44)
[2018-10-11] MEDS ORDERED: BISACODYL 10 MG SUPP PR PRN (22:00)
[2018-10-11] MEDS ORDERED: ONDANSETRON ODT 4 MG PO PRN (22:00)
[2018-10-11] MEDS ORDERED: POLYETHYLENE GLYCOL 17 GM PACKET PO PRN (22:00)
[2018-10-11] MEDS ORDERED: CYAN10005 PO (22:22)
[2018-10-11 22:43] LABS: HEMOGLOBIN A1C 5.7 % (4.2-6.3)
[2018-10-11] MEDS: AMPICILLIN/SULBACTAM 3 GM in SODIUM CHLORIDE 0.9% 100 ML IV SCH (22:45)
[2018-10-11] MEDS: SODIUM CHLORIDE FLUSH 10ML SYR IVF SCH (22:46)
[2018-10-11] MEDS: TAMSULOSIN 0.4 MG CAP.ER.24H PO SCH (22:46)
[2018-10-11] MEDS: GABAPENTIN 300 MG CAPSULE PO SCH (22:46)
[2018-10-11] MEDS: HEPARIN 5,000 UNITS/ML, 1ML SQ SCH (22:46)
[2018-10-12 03:19] VITALS: BP 128/72
[2018-10-12] MEDS: AMPICILLIN/SULBACTAM 3 GM in SODIUM CHLORIDE 0.9% 100 ML IV SCH ×4 (05:08→23:36)
[2018-10-12] MEDS: HEPARIN 5,000 UNITS/ML, 1ML SQ SCH ×3 (05:09→21:11)
[2018-10-12] MEDS: CARVEDILOL 3.125 MG TABLET PO SCH ×2 (05:09→17:30)
[2018-10-12] MEDS: INSULIN GLARGINE 100 UNITS/ML, PEN SQ-INSULIN SCH (05:22)
[2018-10-12 05:37] LABS: CHLORIDE 109 mmol/L (98-107)
[2018-10-12 05:43] LABS: BASOPHILS # (AUTO) 0.04 x10^3/uL (0-0.1); BASOPHILS % (AUTO) 1 % (0-1); EOSINOPHILS # (AUTO) 0.17 x10^3/uL (0-0.4); EOSINOPHILS % (AUTO) 3 % (1-7); LYMPHOCYTES # (AUTO) 1.06 x10^3/uL (1-3.4); LYMPHOCYTES % (AUTO) 16 % (22-44); MD NO; MEAN CORPUSCULAR HEMOGLOBIN 29.4 pg (27.5-34.5); MEAN CORPUSCULAR HGB CONC 34.3 g/dL (33.2-36.2); MEAN CORPUSCULAR VOLUME 85.6 fL (81-97); MEAN PLATELET VOLUME 7.8 fL (7.4-10.4); MONOCYTES # (AUTO) 0.47 x10^3/uL (0.2-0.8); MONOCYTES % (AUTO) 7 % (2-9); NEUTROPHILS # (AUTO) 5.08 x10^3/uL (1.8-6.8); NEUTROPHILS % (AUTO) 74 % (42-75); PLATELET COUNT 270 x10^3/uL (130-400); RED BLOOD COUNT 3.18 x10^6/uL (4.38-5.82); RED CELL DISTRIBUTION WIDTH 14.2 % (9.4-14.8)
[2018-10-12 05:47] LABS: ANION GAP 8 mmol/L (5-15); CALCIUM 7.8 mg/dL (8.5-10.1); CREATININE 0.88 mg/dL (0.7-1.3)
[2018-10-12 05:48] LABS: ALANINE AMINOTRANSFERASE 30 U/L (12-78); ALBUMIN 2.1 g/dL (3.4-5.0); ALKALINE PHOSPHATASE 210 U/L (45-117); BILIRUBIN,TOTAL 0.3 mg/dL (0.2-1.0); TOTAL PROTEIN 5.7 g/dL (6.4-8.2)
[2018-10-12] MEDS: FLUDROCORTISONE 0.1 MG TABLET PO SCH (08:19)
[2018-10-12] MEDS: OMEPRAZOLE 20 MG CAPSULE.DR PO SCH (08:19)
[2018-10-12] MEDS: CYANOCOBALAMIN 1,000 MCG TABLET PO SCH (08:19)
[2018-10-12] MEDS: GABAPENTIN 300 MG CAPSULE PO SCH ×3 (08:19→21:10)
[2018-10-12 08:20] VITALS: BP 120/68
[2018-10-12] MEDS: ASPIRIN 81 MG TABLET EC PO SCH (08:20)
[2018-10-12] MEDS: FUROSEMIDE 40 MG/4 ML IV SCH ×2 (08:20→16:33)
[2018-10-12] MEDS: LISINOPRIL 5 MG TABLET PO SCH (08:20)
[2018-10-12] MEDS: SENNA/DOCUSATE TABLET PO SCH (08:20)
[2018-10-12] MEDS: SODIUM CHLORIDE FLUSH 10ML SYR IVF SCH ×2 (08:21→21:09)
[2018-10-12] MEDS ORDERED: CYANOCOBALAMIN 1,000 MCG TABLET PO SCH (09:00)
[2018-10-12 14:31] VITALS: BP 132/72
[2018-10-12 17:29] VITALS: BP 155/76
[2018-10-12 18:47] VITALS: BP 156/83
[2018-10-12] MEDS: TAMSULOSIN 0.4 MG CAP.ER.24H PO SCH (21:09)
[2018-10-12] MEDS: ACETAMINOPHEN 325 MG TABLET PO PRN (21:20)
[2018-10-13 00:12] VITALS: BP 133/72
[2018-10-13] MEDS: CARVEDILOL 3.125 MG TABLET PO SCH ×2 (05:01→18:16)
[2018-10-13] MEDS: HEPARIN 5,000 UNITS/ML, 1ML SQ SCH ×2 (05:01→15:02)
[2018-10-13] MEDS: AMPICILLIN/SULBACTAM 3 GM in SODIUM CHLORIDE 0.9% 100 ML IV SCH ×3 (05:03→18:16)
[2018-10-13 05:20] LABS: BASOPHILS # (AUTO) 0.04 x10^3/uL (0-0.1); BASOPHILS % (AUTO) 1 % (0-1); EOSINOPHILS # (AUTO) 0.19 x10^3/uL (0-0.4); EOSINOPHILS % (AUTO) 3 % (1-7); LYMPHOCYTES # (AUTO) 1.02 x10^3/uL (1-3.4); LYMPHOCYTES % (AUTO) 16 % (22-44); MD NO; MEAN CORPUSCULAR HEMOGLOBIN 28.6 pg (27.5-34.5); MEAN CORPUSCULAR HGB CONC 33.4 g/dL (33.2-36.2); MEAN CORPUSCULAR VOLUME 85.8 fL (81-97); MEAN PLATELET VOLUME 7.8 fL (7.4-10.4); MONOCYTES # (AUTO) 0.48 x10^3/uL (0.2-0.8); MONOCYTES % (AUTO) 7 % (2-9); NEUTROPHILS # (AUTO) 4.73 x10^3/uL (1.8-6.8); NEUTROPHILS % (AUTO) 73 % (42-75); PLATELET COUNT 284 x10^3/uL (130-400); RED BLOOD COUNT 3.34 x10^6/uL (4.38-5.82); RED CELL DISTRIBUTION WIDTH 14.1 % (9.4-14.8)
[2018-10-13 05:28] LABS: ANION GAP 9 mmol/L (5-15); CALCIUM 7.6 mg/dL (8.5-10.1); CHLORIDE 107 mmol/L (98-107); CREATININE 1.26 mg/dL (0.7-1.3)
[2018-10-13 07:01] VITALS: BP 142/73
[2018-10-13] MEDS: SENNA/DOCUSATE TABLET PO SCH (09:00)
[2018-10-13] MEDS: SODIUM CHLORIDE FLUSH 10ML SYR IVF SCH ×2 (09:00→20:45)
[2018-10-13] MEDS: INSULIN GLARGINE 100 UNITS/ML, PEN SQ-INSULIN SCH (09:01)
[2018-10-13] MEDS: ASPIRIN 81 MG TABLET EC PO SCH (09:02)
[2018-10-13] MEDS: CYANOCOBALAMIN 1,000 MCG TABLET PO SCH (09:02)
[2018-10-13] MEDS: FUROSEMIDE 40 MG/4 ML IV SCH ×2 (09:02→16:54)
[2018-10-13] MEDS: FLUDROCORTISONE 0.1 MG TABLET PO SCH (09:02)
[2018-10-13] MEDS: LISINOPRIL 5 MG TABLET PO SCH (09:06)
[2018-10-13] MEDS: OMEPRAZOLE 20 MG CAPSULE.DR PO SCH (09:08)
[2018-10-13] MEDS: GABAPENTIN 300 MG CAPSULE PO SCH ×3 (09:08→20:46)
[2018-10-13 12:47] VITALS: BP 134/76
[2018-10-13 19:57] VITALS: BP 163/83
[2018-10-13] MEDS: TAMSULOSIN 0.4 MG CAP.ER.24H PO SCH (20:46)
[2018-10-13] MEDS: ACETAMINOPHEN 325 MG TABLET PO PRN (20:49)
[2018-10-14] MEDS: HEPARIN 5,000 UNITS/ML, 1ML SQ SCH ×3 (00:52→17:16)
[2018-10-14] MEDS: AMPICILLIN/SULBACTAM 3 GM in SODIUM CHLORIDE 0.9% 100 ML IV SCH ×3 (00:53→11:47)
[2018-10-14 01:02] VITALS: BP 149/74
[2018-10-14 05:30] LABS: BASOPHILS # (AUTO) 0.03 x10^3/uL (0-0.1); BASOPHILS % (AUTO) 1 % (0-1); EOSINOPHILS # (AUTO) 0.23 x10^3/uL (0-0.4); EOSINOPHILS % (AUTO) 4 % (1-7); LYMPHOCYTES # (AUTO) 0.94 x10^3/uL (1-3.4); LYMPHOCYTES % (AUTO) 16 % (22-44); MD NO; MEAN CORPUSCULAR HEMOGLOBIN 29.2 pg (27.5-34.5); MEAN CORPUSCULAR HGB CONC 34.2 g/dL (33.2-36.2); MEAN CORPUSCULAR VOLUME 85.3 fL (81-97); MEAN PLATELET VOLUME 7.1 fL (7.4-10.4); MONOCYTES # (AUTO) 0.36 x10^3/uL (0.2-0.8); MONOCYTES % (AUTO) 6 % (2-9); NEUTROPHILS # (AUTO) 4.22 x10^3/uL (1.8-6.8); NEUTROPHILS % (AUTO) 73 % (42-75); PLATELET COUNT 310 x10^3/uL (130-400); RED BLOOD COUNT 3.44 x10^6/uL (4.38-5.82); RED CELL DISTRIBUTION WIDTH 14.1 % (9.4-14.8)
[2018-10-14 05:47] LABS: CHLORIDE 106 mmol/L (98-107)
[2018-10-14 05:52] LABS: ANION GAP 8 mmol/L (5-15); CALCIUM 7.7 mg/dL (8.5-10.1); CREATININE 1.33 mg/dL (0.7-1.3)
[2018-10-14] MEDS: CARVEDILOL 3.125 MG TABLET PO SCH ×2 (06:47→17:16)
[2018-10-14 07:40] VITALS: BP 163/81
[2018-10-14] MEDS: SENNA/DOCUSATE TABLET PO SCH (09:00)
[2018-10-14] MEDS: FLUDROCORTISONE 0.1 MG TABLET PO SCH (09:00)
[2018-10-14] MEDS: FUROSEMIDE 40 MG/4 ML IV SCH (10:08)
[2018-10-14] MEDS: GABAPENTIN 300 MG CAPSULE PO SCH ×3 (10:08→20:28)
[2018-10-14] MEDS: CYANOCOBALAMIN 1,000 MCG TABLET PO SCH (10:08)
[2018-10-14] MEDS: ASPIRIN 81 MG TABLET EC PO SCH (10:08)
[2018-10-14] MEDS: OMEPRAZOLE 20 MG CAPSULE.DR PO SCH (10:08)
[2018-10-14] MEDS: LISINOPRIL 5 MG TABLET PO SCH (10:08)
[2018-10-14] MEDS: INSULIN GLARGINE 100 UNITS/ML, PEN SQ-INSULIN SCH (10:09)
[2018-10-14] MEDS: SODIUM CHLORIDE FLUSH 10ML SYR IVF SCH ×2 (11:47→20:29)
[2018-10-14 13:10] VITALS: BP 147/78
[2018-10-14] MEDS ORDERED: hydrALAzine 20 MG/ML, 1ML IV PRN (13:30)
[2018-10-14] MEDS ORDERED: PHARMACY MAY ADJ FOR RENAL FX MC PRN (13:30)
[2018-10-14] MEDS: PIPERACILLIN/TAZO/PMX 3.375GM 50 ML IV SCH ×2 (13:58→20:28)
[2018-10-14 16:02] LABS: INTERNATIONAL NORMALIZED RATIO 1.03 (0.93-1.1); PROTHROMBIN TIME 10.9 Seconds (9.6-11.5)
[2018-10-14 16:05] LABS: ALBUMIN 2.5 g/dL (3.4-5.0)
[2018-10-14 16:06] LABS: TOTAL PROTEIN 6.4 g/dL (6.4-8.2)
[2018-10-14] MEDS ORDERED: LIDOCAINE-MPF 1%, 5ML ONE (17:29)
[2018-10-14 18:59] VITALS: BP 177/85
[2018-10-14] MEDS: TAMSULOSIN 0.4 MG CAP.ER.24H PO SCH (20:28)
[2018-10-15 00:21] VITALS: BP 152/80
[2018-10-15] MEDS: PIPERACILLIN/TAZO/PMX 3.375GM 50 ML IV SCH ×4 (02:28→20:14)
[2018-10-15] MEDS: HEPARIN 5,000 UNITS/ML, 1ML SQ SCH ×3 (02:28→16:22)
[2018-10-15 05:41] LABS: ANION GAP 6 mmol/L (5-15); CALCIUM 7.5 mg/dL (8.5-10.1); CHLORIDE 106 mmol/L (98-107); CREATININE 1.28 mg/dL (0.7-1.3)
[2018-10-15] MEDS: CARVEDILOL 3.125 MG TABLET PO SCH ×2 (06:25→18:05)
[2018-10-15 07:04] VITALS: BP 144/72
[2018-10-15] MEDS: CYANOCOBALAMIN 1,000 MCG TABLET PO SCH (08:14)
[2018-10-15] MEDS: GABAPENTIN 300 MG CAPSULE PO SCH ×3 (08:15→20:15)
[2018-10-15] MEDS: ASPIRIN 81 MG TABLET EC PO SCH (08:15)
[2018-10-15] MEDS: FUROSEMIDE 40 MG/4 ML IV SCH (08:15)
[2018-10-15] MEDS: OMEPRAZOLE 20 MG CAPSULE.DR PO SCH (08:15)
[2018-10-15] MEDS: FLUDROCORTISONE 0.1 MG TABLET PO SCH (08:15)
[2018-10-15] MEDS: LISINOPRIL 5 MG TABLET PO SCH (08:15)
[2018-10-15] MEDS: INSULIN GLARGINE 100 UNITS/ML, PEN SQ-INSULIN SCH (08:16)
[2018-10-15] MEDS: SENNA/DOCUSATE TABLET PO SCH (09:00)
[2018-10-15] MEDS: SODIUM CHLORIDE FLUSH 10ML SYR IVF SCH ×2 (09:00→20:15)
[2018-10-15 13:05] VITALS: BP 135/72
[2018-10-15 18:59] VITALS: BP 165/82
[2018-10-15] MEDS: TAMSULOSIN 0.4 MG CAP.ER.24H PO SCH (20:15)
[2018-10-16 01:59] VITALS: BP 132/66
[2018-10-16] MEDS: PIPERACILLIN/TAZO/PMX 3.375GM 50 ML IV SCH ×4 (02:44→20:09)
[2018-10-16] MEDS: HEPARIN 5,000 UNITS/ML, 1ML SQ SCH ×3 (02:44→16:27)
[2018-10-16 06:00] LABS: BASOPHILS # (AUTO) 0.04 x10^3/uL (0-0.1); BASOPHILS % (AUTO) 1 % (0-1); EOSINOPHILS % (AUTO) 3 % (1-7); LYMPHOCYTES # (AUTO) 1.11 x10^3/uL (1-3.4); LYMPHOCYTES % (AUTO) 18 % (22-44); MD NO; MEAN CORPUSCULAR HGB CONC 34.3 g/dL (33.2-36.2); MEAN CORPUSCULAR VOLUME 84.7 fL (81-97); MEAN PLATELET VOLUME 7.6 fL (7.4-10.4); MONOCYTES # (AUTO) 0.29 x10^3/uL (0.2-0.8); MONOCYTES % (AUTO) 5 % (2-9); NEUTROPHILS # (AUTO) 4.49 x10^3/uL (1.8-6.8); NEUTROPHILS % (AUTO) 73 % (42-75); PLATELET COUNT 287 x10^3/uL (130-400); RED BLOOD COUNT 3.44 x10^6/uL (4.38-5.82); RED CELL DISTRIBUTION WIDTH 13.7 % (9.4-14.8)
[2018-10-16 06:09] LABS: ANION GAP 7 mmol/L (5-15); CALCIUM 7.2 mg/dL (8.5-10.1); CHLORIDE 106 mmol/L (98-107); CREATININE 1.22 mg/dL (0.7-1.3)
[2018-10-16 06:33] VITALS: BP 134/65
[2018-10-16] MEDS: CARVEDILOL 3.125 MG TABLET PO SCH ×2 (06:49→16:26)
[2018-10-16] MEDS: ASPIRIN 81 MG TABLET EC PO SCH (08:36)
[2018-10-16] MEDS: LISINOPRIL 5 MG TABLET PO SCH (08:36)
[2018-10-16] MEDS: GABAPENTIN 300 MG CAPSULE PO SCH ×3 (08:36→20:09)
[2018-10-16] MEDS: OMEPRAZOLE 20 MG CAPSULE.DR PO SCH (08:36)
[2018-10-16] MEDS: CYANOCOBALAMIN 1,000 MCG TABLET PO SCH (08:37)
[2018-10-16] MEDS: FLUDROCORTISONE 0.1 MG TABLET PO SCH (08:37)
[2018-10-16] MEDS: INSULIN GLARGINE 100 UNITS/ML, PEN SQ-INSULIN SCH (08:38)
[2018-10-16] MEDS: FUROSEMIDE 40 MG/4 ML IV SCH (08:40)
[2018-10-16] MEDS: SODIUM CHLORIDE FLUSH 10ML SYR IVF SCH ×2 (08:40→20:10)
[2018-10-16] MEDS: SENNA/DOCUSATE TABLET PO SCH (08:41)
[2018-10-16 12:36] VITALS: BP 158/83
[2018-10-16 18:33] VITALS: BP 159/81
[2018-10-16] MEDS: TAMSULOSIN 0.4 MG CAP.ER.24H PO SCH (20:09)
[2018-10-17 01:34] VITALS: BP 138/69
[2018-10-17] MEDS: PIPERACILLIN/TAZO/PMX 3.375GM 50 ML IV SCH ×5 (02:03→20:16)
[2018-10-17] MEDS: HEPARIN 5,000 UNITS/ML, 1ML SQ SCH ×3 (02:04→16:56)
[2018-10-17 05:38] LABS: BASOPHILS # (AUTO) 0.03 x10^3/uL (0-0.1); BASOPHILS % (AUTO) 1 % (0-1); EOSINOPHILS # (AUTO) 0.21 x10^3/uL (0-0.4); EOSINOPHILS % (AUTO) 3 % (1-7); LYMPHOCYTES # (AUTO) 1.21 x10^3/uL (1-3.4); LYMPHOCYTES % (AUTO) 20 % (22-44); MD NO; MEAN CORPUSCULAR HEMOGLOBIN 28.7 pg (27.5-34.5); MEAN CORPUSCULAR HGB CONC 33.9 g/dL (33.2-36.2); MEAN CORPUSCULAR VOLUME 84.7 fL (81-97); MEAN PLATELET VOLUME 7.6 fL (7.4-10.4); MONOCYTES # (AUTO) 0.36 x10^3/uL (0.2-0.8); MONOCYTES % (AUTO) 6 % (2-9); NEUTROPHILS # (AUTO) 4.35 x10^3/uL (1.8-6.8); NEUTROPHILS % (AUTO) 71 % (42-75); PLATELET COUNT 264 x10^3/uL (130-400); RED BLOOD COUNT 3.49 x10^6/uL (4.38-5.82)
[2018-10-17 05:45] LABS: CHLORIDE 105 mmol/L (98-107)
[2018-10-17 05:53] LABS: ANION GAP 7 mmol/L (5-15); CALCIUM 7.9 mg/dL (8.5-10.1); CREATININE 1.19 mg/dL (0.7-1.3)
[2018-10-17] MEDS: CARVEDILOL 3.125 MG TABLET PO SCH ×2 (06:42→16:56)
[2018-10-17 06:56] VITALS: BP 149/74
[2018-10-17] MEDS: FLUDROCORTISONE 0.1 MG TABLET PO SCH (08:16)
[2018-10-17] MEDS: OMEPRAZOLE 20 MG CAPSULE.DR PO SCH (08:16)
[2018-10-17] MEDS: ASPIRIN 81 MG TABLET EC PO SCH (08:17)
[2018-10-17] MEDS: GABAPENTIN 300 MG CAPSULE PO SCH ×3 (08:17→20:17)
[2018-10-17] MEDS: CYANOCOBALAMIN 1,000 MCG TABLET PO SCH (08:17)
[2018-10-17] MEDS: LISINOPRIL 5 MG TABLET PO SCH (08:17)
[2018-10-17] MEDS: SODIUM CHLORIDE FLUSH 10ML SYR IVF SCH ×2 (08:18→21:00)
[2018-10-17] MEDS: FUROSEMIDE 40 MG/4 ML IV SCH (08:18)
[2018-10-17] MEDS: INSULIN GLARGINE 100 UNITS/ML, PEN SQ-INSULIN SCH (08:44)
[2018-10-17] MEDS: SENNA/DOCUSATE TABLET PO SCH (09:00)
[2018-10-17 12:27] VITALS: BP 122/81
[2018-10-17 19:08] VITALS: BP 146/77
[2018-10-17] MEDS: TAMSULOSIN 0.4 MG CAP.ER.24H PO SCH (20:17)
[2018-10-18 01:05] VITALS: BP 139/74
[2018-10-18] MEDS: HEPARIN 5,000 UNITS/ML, 1ML SQ SCH ×4 (02:28→20:58)
[2018-10-18] MEDS: PIPERACILLIN/TAZO/PMX 3.375GM 50 ML IV SCH ×4 (02:29→20:57)
[2018-10-18 05:52] VITALS: BP 147/75
[2018-10-18] MEDS: CARVEDILOL 3.125 MG TABLET PO SCH ×2 (05:54→17:44)
[2018-10-18 06:13] LABS: ANION GAP 7 mmol/L (5-15); CALCIUM 7.8 mg/dL (8.5-10.1); CHLORIDE 106 mmol/L (98-107); CREATININE 1.19 mg/dL (0.7-1.3)
[2018-10-18 06:18] LABS: BASOPHILS # (AUTO) 0.05 x10^3/uL (0-0.1); BASOPHILS % (AUTO) 1 % (0-1); EOSINOPHILS # (AUTO) 0.25 x10^3/uL (0-0.4); EOSINOPHILS % (AUTO) 4 % (1-7); LYMPHOCYTES # (AUTO) 1.42 x10^3/uL (1-3.4); LYMPHOCYTES % (AUTO) 23 % (22-44); MD NO; MEAN CORPUSCULAR VOLUME 85.2 fL (81-97); MEAN PLATELET VOLUME 7.6 fL (7.4-10.4); MONOCYTES # (AUTO) 0.33 x10^3/uL (0.2-0.8); MONOCYTES % (AUTO) 5 % (2-9); NEUTROPHILS # (AUTO) 4.05 x10^3/uL (1.8-6.8); NEUTROPHILS % (AUTO) 66 % (42-75); PLATELET COUNT 282 x10^3/uL (130-400); RED BLOOD COUNT 3.65 x10^6/uL (4.38-5.82); RED CELL DISTRIBUTION WIDTH 14.1 % (9.4-14.8)
[2018-10-18 06:29] VITALS: BP 128/74
[2018-10-18] MEDS: SENNA/DOCUSATE TABLET PO SCH (09:00)
[2018-10-18] MEDS: FLUDROCORTISONE 0.1 MG TABLET PO SCH (09:46)
[2018-10-18] MEDS: CYANOCOBALAMIN 1,000 MCG TABLET PO SCH (09:46)
[2018-10-18] MEDS: OMEPRAZOLE 20 MG CAPSULE.DR PO SCH (09:46)
[2018-10-18] MEDS: ASPIRIN 81 MG TABLET EC PO SCH (09:46)
[2018-10-18] MEDS: LISINOPRIL 5 MG TABLET PO SCH (09:46)
[2018-10-18] MEDS: GABAPENTIN 300 MG CAPSULE PO SCH ×3 (09:46→20:57)
[2018-10-18] MEDS: FUROSEMIDE 40 MG/4 ML IV SCH (09:46)
[2018-10-18] MEDS: SODIUM CHLORIDE FLUSH 10ML SYR IVF SCH ×2 (09:47→20:58)
[2018-10-18] MEDS: INSULIN GLARGINE 100 UNITS/ML, PEN SQ-INSULIN SCH (09:47)
[2018-10-18 12:36] VITALS: BP 128/69
[2018-10-18 19:06] VITALS: BP 145/69
[2018-10-18] MEDS: TAMSULOSIN 0.4 MG CAP.ER.24H PO SCH (20:57)
[2018-10-19] MEDS: PIPERACILLIN/TAZO/PMX 3.375GM 50 ML IV SCH ×4 (03:12→21:57)
[2018-10-19 03:16] VITALS: BP 121/67
[2018-10-19 05:13] VITALS: BP 130/70
[2018-10-19] MEDS: CARVEDILOL 3.125 MG TABLET PO SCH ×2 (05:28→18:02)
[2018-10-19] MEDS: HEPARIN 5,000 UNITS/ML, 1ML SQ SCH ×2 (05:28→18:02)
[2018-10-19 05:48] LABS: BASOPHILS # (AUTO) 0.03 x10^3/uL (0-0.1); BASOPHILS % (AUTO) 1 % (0-1); EOSINOPHILS # (AUTO) 0.25 x10^3/uL (0-0.4); EOSINOPHILS % (AUTO) 4 % (1-7); LYMPHOCYTES # (AUTO) 1.41 x10^3/uL (1-3.4); LYMPHOCYTES % (AUTO) 19 % (22-44); MD NO; MEAN CORPUSCULAR VOLUME 85.2 fL (81-97); MEAN PLATELET VOLUME 7.5 fL (7.4-10.4); MONOCYTES # (AUTO) 0.41 x10^3/uL (0.2-0.8); MONOCYTES % (AUTO) 6 % (2-9); NEUTROPHILS # (AUTO) 5.18 x10^3/uL (1.8-6.8); NEUTROPHILS % (AUTO) 71 % (42-75); PLATELET COUNT 268 x10^3/uL (130-400); RED BLOOD COUNT 3.76 x10^6/uL (4.38-5.82)
[2018-10-19 06:00] LABS: ANION GAP 7 mmol/L (5-15); CALCIUM 8.2 mg/dL (8.5-10.1); CHLORIDE 106 mmol/L (98-107); CREATININE 1.28 mg/dL (0.7-1.3)
[2018-10-19 06:39] VITALS: BP 128/64
[2018-10-19] MEDS: OMEPRAZOLE 20 MG CAPSULE.DR PO SCH (08:50)
[2018-10-19] MEDS: LISINOPRIL 5 MG TABLET PO SCH (08:51)
[2018-10-19] MEDS: GABAPENTIN 300 MG CAPSULE PO SCH ×3 (08:51→21:57)
[2018-10-19] MEDS: FLUDROCORTISONE 0.1 MG TABLET PO SCH (08:52)
[2018-10-19] MEDS: FUROSEMIDE 40 MG/4 ML IV SCH (08:53)
[2018-10-19] MEDS: CYANOCOBALAMIN 1,000 MCG TABLET PO SCH (08:53)
[2018-10-19] MEDS: ASPIRIN 81 MG TABLET EC PO SCH (08:53)
[2018-10-19] MEDS: SENNA/DOCUSATE TABLET PO SCH (08:54)
[2018-10-19] MEDS: INSULIN GLARGINE 100 UNITS/ML, PEN SQ-INSULIN SCH (08:55)
[2018-10-19] MEDS: SODIUM CHLORIDE FLUSH 10ML SYR IVF SCH ×2 (08:56→21:00)
[2018-10-19] MEDS ORDERED: POTASSIUM CHLORIDE 20 MEQ TAB.ER.PRT PO ONE (10:00)
[2018-10-19 12:05] VITALS: BP 153/78
[2018-10-19 12:50] LABS: CLOSTRIDIUM DIFFICILE TOXIN NEGATIVE (Negative)
[2018-10-19 12:52] LABS: CLOSTRIDIUM DIFFICILE ANTIGEN POSITIVE
--- NOTE | 2018-10-19 17:01 | NUR ---
Green activity sheet intiated: Daily pt to: 1) amb with nurses and FWW 1-3 times a day 2) up in chair for meals Addendum: 10/19/18 at 1701 by Joleen Edmonds PT Amended: Links added.
[2018-10-19 19:44] VITALS: BP 149/73
[2018-10-19] MEDS: TAMSULOSIN 0.4 MG CAP.ER.24H PO SCH (21:57)
[2018-10-20 02:00] VITALS: BP 143/75
[2018-10-20] MEDS: HEPARIN 5,000 UNITS/ML, 1ML SQ SCH ×4 (02:30→21:11)
[2018-10-20] MEDS: PIPERACILLIN/TAZO/PMX 3.375GM 50 ML IV SCH ×4 (03:38→21:11)
[2018-10-20 05:25] LABS: BASOPHILS # (AUTO) 0.04 x10^3/uL (0-0.1); BASOPHILS % (AUTO) 1 % (0-1); EOSINOPHILS # (AUTO) 0.25 x10^3/uL (0-0.4); EOSINOPHILS % (AUTO) 4 % (1-7); LYMPHOCYTES # (AUTO) 1.49 x10^3/uL (1-3.4); LYMPHOCYTES % (AUTO) 21 % (22-44); MD NO; MEAN CORPUSCULAR VOLUME 85.3 fL (81-97); MEAN PLATELET VOLUME 7.9 fL (7.4-10.4); MONOCYTES # (AUTO) 0.39 x10^3/uL (0.2-0.8); MONOCYTES % (AUTO) 6 % (2-9); NEUTROPHILS # (AUTO) 4.95 x10^3/uL (1.8-6.8); NEUTROPHILS % (AUTO) 70 % (42-75); PLATELET COUNT 245 x10^3/uL (130-400); RED BLOOD COUNT 3.73 x10^6/uL (4.38-5.82); RED CELL DISTRIBUTION WIDTH 14.2 % (9.4-14.8)
[2018-10-20 05:27] LABS: ANION GAP 7 mmol/L (5-15); CALCIUM 7.8 mg/dL (8.5-10.1); CHLORIDE 106 mmol/L (98-107); CREATININE 1.36 mg/dL (0.7-1.3)
[2018-10-20 05:29] VITALS: BP 135/69
[2018-10-20] MEDS: CARVEDILOL 3.125 MG TABLET PO SCH ×2 (05:30→18:30)
[2018-10-20 06:50] VITALS: BP 148/74
[2018-10-20] MEDS: INSULIN GLARGINE 100 UNITS/ML, PEN SQ-INSULIN SCH (08:47)
[2018-10-20] MEDS: FUROSEMIDE 40 MG/4 ML IV SCH (08:47)
[2018-10-20] MEDS: FLUDROCORTISONE 0.1 MG TABLET PO SCH (08:47)
[2018-10-20] MEDS: CYANOCOBALAMIN 1,000 MCG TABLET PO SCH (08:48)
[2018-10-20] MEDS: OMEPRAZOLE 20 MG CAPSULE.DR PO SCH (08:48)
[2018-10-20] MEDS: LISINOPRIL 5 MG TABLET PO SCH (08:48)
[2018-10-20] MEDS: ASPIRIN 81 MG TABLET EC PO SCH (08:48)
[2018-10-20] MEDS: GABAPENTIN 300 MG CAPSULE PO SCH ×3 (08:48→21:11)
[2018-10-20] MEDS: SODIUM CHLORIDE FLUSH 10ML SYR IVF SCH ×2 (08:49→21:11)
[2018-10-20] MEDS: SENNA/DOCUSATE TABLET PO SCH (08:49)
[2018-10-20 12:45] VITALS: BP 141/75
[2018-10-20 18:47] VITALS: BP 149/71
[2018-10-20] MEDS: TAMSULOSIN 0.4 MG CAP.ER.24H PO SCH (21:11)
[2018-10-21 05:05] VITALS: BP 137/75
[2018-10-21] MEDS: PIPERACILLIN/TAZO/PMX 3.375GM 50 ML IV SCH ×2 (05:06→10:13)
[2018-10-21] MEDS: CARVEDILOL 3.125 MG TABLET PO SCH ×2 (05:06→17:18)
[2018-10-21 05:47] LABS: BASOPHILS # (AUTO) 0.03 x10^3/uL (0-0.1); BASOPHILS % (AUTO) 1 % (0-1); EOSINOPHILS # (AUTO) 0.21 x10^3/uL (0-0.4); EOSINOPHILS % (AUTO) 3 % (1-7); LYMPHOCYTES # (AUTO) 1.52 x10^3/uL (1-3.4); LYMPHOCYTES % (AUTO) 22 % (22-44); MD NO; MEAN CORPUSCULAR VOLUME 85.2 fL (81-97); MEAN PLATELET VOLUME 7.9 fL (7.4-10.4); MONOCYTES # (AUTO) 0.33 x10^3/uL (0.2-0.8); MONOCYTES % (AUTO) 5 % (2-9); NEUTROPHILS # (AUTO) 4.71 x10^3/uL (1.8-6.8); NEUTROPHILS % (AUTO) 69 % (42-75); PLATELET COUNT 247 x10^3/uL (130-400); RED BLOOD COUNT 3.74 x10^6/uL (4.38-5.82); RED CELL DISTRIBUTION WIDTH 14.6 % (9.4-14.8)
[2018-10-21 05:55] LABS: ANION GAP 7 mmol/L (5-15); CALCIUM 8.3 mg/dL (8.5-10.1); CHLORIDE 105 mmol/L (98-107); CREATININE 1.28 mg/dL (0.7-1.3)
[2018-10-21 07:50] VITALS: BP 161/83
[2018-10-21] MEDS: FUROSEMIDE 40 MG/4 ML IV SCH (10:12)
[2018-10-21] MEDS: GABAPENTIN 300 MG CAPSULE PO SCH ×3 (10:12→20:00)
[2018-10-21] MEDS: OMEPRAZOLE 20 MG CAPSULE.DR PO SCH (10:12)
[2018-10-21] MEDS: HEPARIN 5,000 UNITS/ML, 1ML SQ SCH ×3 (10:12→17:18)
[2018-10-21] MEDS: CYANOCOBALAMIN 1,000 MCG TABLET PO SCH (10:12)
[2018-10-21] MEDS: FLUDROCORTISONE 0.1 MG TABLET PO SCH (10:13)
[2018-10-21] MEDS: ASPIRIN 81 MG TABLET EC PO SCH (10:13)
[2018-10-21] MEDS: LISINOPRIL 5 MG TABLET PO SCH (10:13)
[2018-10-21] MEDS: SODIUM CHLORIDE FLUSH 10ML SYR IVF SCH ×2 (10:13→20:00)
[2018-10-21] MEDS: SENNA/DOCUSATE TABLET PO SCH (10:14)
[2018-10-21] MEDS: INSULIN GLARGINE 100 UNITS/ML, PEN SQ-INSULIN SCH (10:34)
[2018-10-21 14:32] VITALS: BP 146/56
[2018-10-21] MEDS: TAMSULOSIN 0.4 MG CAP.ER.24H PO SCH (20:00)
[2018-10-21 20:03] VITALS: BP 160/79
[2018-10-22] MEDS: HEPARIN 5,000 UNITS/ML, 1ML SQ SCH ×3 (01:30→17:39)
[2018-10-22 01:31] VITALS: BP 142/69
[2018-10-22] MEDS: CARVEDILOL 3.125 MG TABLET PO SCH ×2 (05:38→17:39)
[2018-10-22 05:47] LABS: BASOPHILS # (AUTO) 0.04 x10^3/uL (0-0.1); BASOPHILS % (AUTO) 1 % (0-1); EOSINOPHILS # (AUTO) 0.26 x10^3/uL (0-0.4); EOSINOPHILS % (AUTO) 4 % (1-7); LYMPHOCYTES # (AUTO) 1.69 x10^3/uL (1-3.4); LYMPHOCYTES % (AUTO) 24 % (22-44); MD NO; MEAN CORPUSCULAR HEMOGLOBIN 29.1 pg (27.5-34.5); MEAN CORPUSCULAR HGB CONC 34.1 g/dL (33.2-36.2); MEAN CORPUSCULAR VOLUME 85.3 fL (81-97); MEAN PLATELET VOLUME 8.1 fL (7.4-10.4); MONOCYTES % (AUTO) 6 % (2-9); NEUTROPHILS # (AUTO) 4.74 x10^3/uL (1.8-6.8); NEUTROPHILS % (AUTO) 67 % (42-75); PLATELET COUNT 241 x10^3/uL (130-400); RED BLOOD COUNT 3.84 x10^6/uL (4.38-5.82)
[2018-10-22 05:50] LABS: ANION GAP 7 mmol/L (5-15); CALCIUM 8.4 mg/dL (8.5-10.1); CHLORIDE 107 mmol/L (98-107); CREATININE 1.07 mg/dL (0.7-1.3)
[2018-10-22 07:17] VITALS: BP 144/67
[2018-10-22] MEDS: ASPIRIN 81 MG TABLET EC PO SCH (09:07)
[2018-10-22] MEDS: FLUDROCORTISONE 0.1 MG TABLET PO SCH (09:07)
[2018-10-22] MEDS: GABAPENTIN 300 MG CAPSULE PO SCH ×3 (09:07→22:07)
[2018-10-22] MEDS: SODIUM CHLORIDE FLUSH 10ML SYR IVF SCH ×2 (09:08→22:07)
[2018-10-22] MEDS: FUROSEMIDE 40 MG/4 ML IV SCH (09:08)
[2018-10-22] MEDS: LISINOPRIL 5 MG TABLET PO SCH (09:09)
[2018-10-22] MEDS: OMEPRAZOLE 20 MG CAPSULE.DR PO SCH (09:09)
[2018-10-22] MEDS: CYANOCOBALAMIN 1,000 MCG TABLET PO SCH (09:09)
[2018-10-22] MEDS: INSULIN GLARGINE 100 UNITS/ML, PEN SQ-INSULIN SCH (09:09)
[2018-10-22] MEDS: SENNA/DOCUSATE TABLET PO SCH (09:09)
[2018-10-22 12:46] VITALS: BP 101/65
[2018-10-22] MEDS ORDERED: POTASSIUM CHLORIDE 20 MEQ TAB.ER.PRT PO ONE (17:00)
[2018-10-22 17:41] VITALS: BP 138/67
[2018-10-22 19:15] VITALS: BP 156/76
[2018-10-22] MEDS: TAMSULOSIN 0.4 MG CAP.ER.24H PO SCH (22:07)
[2018-10-23 01:39] VITALS: BP 135/74
[2018-10-23] MEDS: HEPARIN 5,000 UNITS/ML, 1ML SQ SCH ×3 (02:15→17:47)
[2018-10-23] MEDS: CARVEDILOL 3.125 MG TABLET PO SCH ×2 (05:50→17:47)
[2018-10-23 05:56] LABS: ANION GAP 6 mmol/L (5-15); CALCIUM 8.1 mg/dL (8.5-10.1); CHLORIDE 108 mmol/L (98-107); CREATININE 1.11 mg/dL (0.7-1.3)
[2018-10-23 06:38] VITALS: BP 113/59
[2018-10-23] MEDS: SENNA/DOCUSATE TABLET PO SCH (09:00)
[2018-10-23] MEDS: INSULIN GLARGINE 100 UNITS/ML, PEN SQ-INSULIN SCH (09:57)
[2018-10-23] MEDS: OMEPRAZOLE 20 MG CAPSULE.DR PO SCH (09:57)
[2018-10-23] MEDS: FLUDROCORTISONE 0.1 MG TABLET PO SCH (09:58)
[2018-10-23] MEDS: FUROSEMIDE 40 MG/4 ML IV SCH (09:58)
[2018-10-23] MEDS: SODIUM CHLORIDE FLUSH 10ML SYR IVF SCH ×2 (09:58→21:17)
[2018-10-23] MEDS: LISINOPRIL 5 MG TABLET PO SCH (09:58)
[2018-10-23] MEDS: ASPIRIN 81 MG TABLET EC PO SCH (10:05)
[2018-10-23] MEDS: CYANOCOBALAMIN 1,000 MCG TABLET PO SCH (10:05)
[2018-10-23] MEDS: GABAPENTIN 300 MG CAPSULE PO SCH ×3 (10:05→21:17)
[2018-10-23 16:14] VITALS: BP 151/73
[2018-10-23 19:51] VITALS: BP 150/77
[2018-10-23] MEDS: TAMSULOSIN 0.4 MG CAP.ER.24H PO SCH (21:17)
[2018-10-24 00:51] VITALS: BP 153/74
[2018-10-24] MEDS: HEPARIN 5,000 UNITS/ML, 1ML SQ SCH ×3 (01:59→18:00)
[2018-10-24 06:19] VITALS: BP 152/68
[2018-10-24] MEDS: CARVEDILOL 3.125 MG TABLET PO SCH ×2 (06:23→19:36)
[2018-10-24 07:04] VITALS: BP 144/74
[2018-10-24 07:33] LABS: BASOPHILS # (AUTO) 0.06 x10^3/uL (0-0.1); BASOPHILS % (AUTO) 1 % (0-1); EOSINOPHILS % (AUTO) 3 % (1-7); LYMPHOCYTES # (AUTO) 1.62 x10^3/uL (1-3.4); LYMPHOCYTES % (AUTO) 24 % (22-44); MD NO; MEAN CORPUSCULAR HEMOGLOBIN 28.4 pg (27.5-34.5); MEAN CORPUSCULAR HGB CONC 33.3 g/dL (33.2-36.2); MEAN CORPUSCULAR VOLUME 85.5 fL (81-97); MEAN PLATELET VOLUME 8.2 fL (7.4-10.4); MONOCYTES # (AUTO) 0.42 x10^3/uL (0.2-0.8); MONOCYTES % (AUTO) 6 % (2-9); NEUTROPHILS # (AUTO) 4.34 x10^3/uL (1.8-6.8); NEUTROPHILS % (AUTO) 65 % (42-75); PLATELET COUNT 235 x10^3/uL (130-400); RED BLOOD COUNT 4.14 x10^6/uL (4.38-5.82); RED CELL DISTRIBUTION WIDTH 15.3 % (9.4-14.8)
[2018-10-24 07:43] LABS: ANION GAP 6 mmol/L (5-15); CALCIUM 8.4 mg/dL (8.5-10.1); CHLORIDE 108 mmol/L (98-107); CREATININE 0.93 mg/dL (0.7-1.3)
[2018-10-24] MEDS: SODIUM CHLORIDE FLUSH 10ML SYR IVF SCH ×2 (09:00→20:13)
[2018-10-24] MEDS: SENNA/DOCUSATE TABLET PO SCH (09:00)
[2018-10-24] MEDS: FUROSEMIDE 40 MG/4 ML IV SCH (09:14)
[2018-10-24] MEDS: OMEPRAZOLE 20 MG CAPSULE.DR PO SCH (09:14)
[2018-10-24] MEDS: GABAPENTIN 300 MG CAPSULE PO SCH ×3 (09:14→20:12)
[2018-10-24] MEDS: CYANOCOBALAMIN 1,000 MCG TABLET PO SCH (09:14)
[2018-10-24] MEDS: ASPIRIN 81 MG TABLET EC PO SCH (09:14)
[2018-10-24] MEDS: LISINOPRIL 5 MG TABLET PO SCH (09:15)
[2018-10-24] MEDS: FLUDROCORTISONE 0.1 MG TABLET PO SCH (09:15)
[2018-10-24] MEDS: INSULIN GLARGINE 100 UNITS/ML, PEN SQ-INSULIN SCH (09:19)
[2018-10-24 12:23] VITALS: BP 145/70
[2018-10-24 19:54] VITALS: BP 137/70
[2018-10-24] MEDS: TAMSULOSIN 0.4 MG CAP.ER.24H PO SCH (20:12)
[2018-10-25 01:29] VITALS: BP 129/66
[2018-10-25] MEDS: HEPARIN 5,000 UNITS/ML, 1ML SQ SCH ×3 (02:07→16:40)
[2018-10-25] MEDS: CARVEDILOL 3.125 MG TABLET PO SCH ×2 (05:25→16:40)
[2018-10-25 07:30] VITALS: BP 126/70
[2018-10-25] MEDS: INSULIN GLARGINE 100 UNITS/ML, PEN SQ-INSULIN SCH (08:16)
[2018-10-25] MEDS: GABAPENTIN 300 MG CAPSULE PO SCH ×3 (08:17→20:40)
[2018-10-25] MEDS: OMEPRAZOLE 20 MG CAPSULE.DR PO SCH (08:17)
[2018-10-25] MEDS: LISINOPRIL 5 MG TABLET PO SCH (08:17)
[2018-10-25] MEDS: ASPIRIN 81 MG TABLET EC PO SCH (08:17)
[2018-10-25] MEDS: FLUDROCORTISONE 0.1 MG TABLET PO SCH (08:17)
[2018-10-25] MEDS: CYANOCOBALAMIN 1,000 MCG TABLET PO SCH (08:18)
[2018-10-25] MEDS: FUROSEMIDE 40 MG/4 ML IV SCH ×2 (08:18→10:42)
[2018-10-25] MEDS: SENNA/DOCUSATE TABLET PO SCH (08:18)
[2018-10-25] MEDS: SODIUM CHLORIDE FLUSH 10ML SYR IVF SCH ×2 (08:19→20:41)
[2018-10-25 12:46] VITALS: BP 124/71
[2018-10-25] MEDS: TAMSULOSIN 0.4 MG CAP.ER.24H PO SCH (20:40)
[2018-10-25 21:10] VITALS: BP 157/78
[2018-10-26] VITALS (10 sets, daily range): BP systolic 68–136; BP diastolic 45–82
[2018-10-26] MEDS: HEPARIN 5,000 UNITS/ML, 1ML SQ SCH ×3 (02:59→17:55)
[2018-10-26] MEDS: CARVEDILOL 3.125 MG TABLET PO SCH ×2 (05:08→17:55)
[2018-10-26 05:54] LABS: BASOPHILS # (AUTO) 0.03 x10^3/uL (0-0.1); BASOPHILS % (AUTO) 1 % (0-1); EOSINOPHILS # (AUTO) 0.28 x10^3/uL (0-0.4); EOSINOPHILS % (AUTO) 5 % (1-7); LYMPHOCYTES % (AUTO) 27 % (22-44); MD NO; MEAN CORPUSCULAR HEMOGLOBIN 29.1 pg (27.5-34.5); MEAN CORPUSCULAR HGB CONC 34.1 g/dL (33.2-36.2); MEAN CORPUSCULAR VOLUME 85.4 fL (81-97); MEAN PLATELET VOLUME 8.6 fL (7.4-10.4); MONOCYTES # (AUTO) 0.37 x10^3/uL (0.2-0.8); MONOCYTES % (AUTO) 6 % (2-9); NEUTROPHILS # (AUTO) 3.75 x10^3/uL (1.8-6.8); NEUTROPHILS % (AUTO) 62 % (42-75); PLATELET COUNT 232 x10^3/uL (130-400); RED BLOOD COUNT 4.03 x10^6/uL (4.38-5.82); RED CELL DISTRIBUTION WIDTH 15.6 % (9.4-14.8)
[2018-10-26] MEDS: SENNA/DOCUSATE TABLET PO SCH (09:39)
[2018-10-26] MEDS: OMEPRAZOLE 20 MG CAPSULE.DR PO SCH (09:40)
[2018-10-26] MEDS: INSULIN GLARGINE 100 UNITS/ML, PEN SQ-INSULIN SCH (09:40)
[2018-10-26] MEDS: GABAPENTIN 300 MG CAPSULE PO SCH ×3 (09:40→20:19)
[2018-10-26] MEDS: FUROSEMIDE 40 MG/4 ML IV SCH (09:40)
[2018-10-26] MEDS: LISINOPRIL 5 MG TABLET PO SCH (09:40)
[2018-10-26] MEDS: ASPIRIN 81 MG TABLET EC PO SCH (09:40)
[2018-10-26] MEDS: CYANOCOBALAMIN 1,000 MCG TABLET PO SCH (09:41)
[2018-10-26] MEDS: SODIUM CHLORIDE FLUSH 10ML SYR IVF SCH ×2 (09:41→20:19)
[2018-10-26] MEDS: FLUDROCORTISONE 0.1 MG TABLET PO SCH (09:41)
[2018-10-26] MEDS: POTASSIUM CHLORIDE 10 MEQ TABLET.ER PO SCH (11:29)
[2018-10-26] MEDS: TAMSULOSIN 0.4 MG CAP.ER.24H PO SCH (20:19)
[2018-10-27] MEDS: HEPARIN 5,000 UNITS/ML, 1ML SQ SCH ×3 (02:05→17:09)
[2018-10-27 02:07] VITALS: BP 104/56
[2018-10-27] MEDS: CARVEDILOL 3.125 MG TABLET PO SCH (05:41)
[2018-10-27 07:41] VITALS: BP 122/64
[2018-10-27] MEDS: SODIUM CHLORIDE FLUSH 10ML SYR IVF SCH ×2 (09:00→21:20)
[2018-10-27] MEDS: SENNA/DOCUSATE TABLET PO SCH (09:00)
[2018-10-27] MEDS: FLUDROCORTISONE 0.1 MG TABLET PO SCH (10:08)
[2018-10-27] MEDS: GABAPENTIN 300 MG CAPSULE PO SCH ×3 (10:08→21:20)
[2018-10-27] MEDS: FUROSEMIDE 40 MG TABLET PO SCH (10:09)
[2018-10-27] MEDS: LISINOPRIL 5 MG TABLET PO SCH (10:09)
[2018-10-27] MEDS: ASPIRIN 81 MG TABLET EC PO SCH (10:09)
[2018-10-27] MEDS: OMEPRAZOLE 20 MG CAPSULE.DR PO SCH (10:09)
[2018-10-27] MEDS: CYANOCOBALAMIN 1,000 MCG TABLET PO SCH (10:09)
[2018-10-27] MEDS: POTASSIUM CHLORIDE 10 MEQ TABLET.ER PO SCH (10:09)
[2018-10-27] MEDS: INSULIN GLARGINE 100 UNITS/ML, PEN SQ-INSULIN SCH (10:13)
[2018-10-27 13:35] VITALS: BP 114/63
[2018-10-27 20:46] VITALS: BP 143/74
[2018-10-27] MEDS: TAMSULOSIN 0.4 MG CAP.ER.24H PO SCH (21:20)
[2018-10-28 00:54] VITALS: BP 102/63
[2018-10-28] MEDS: HEPARIN 5,000 UNITS/ML, 1ML SQ SCH ×3 (02:25→17:50)
[2018-10-28 06:20] LABS: BASOPHILS # (AUTO) 0.04 x10^3/uL (0-0.1); BASOPHILS % (AUTO) 1 % (0-1); EOSINOPHILS # (AUTO) 0.28 x10^3/uL (0-0.4); EOSINOPHILS % (AUTO) 5 % (1-7); LYMPHOCYTES % (AUTO) 28 % (22-44); MD NO; MEAN CORPUSCULAR HEMOGLOBIN 29.2 pg (27.5-34.5); MEAN CORPUSCULAR VOLUME 85.9 fL (81-97); MEAN PLATELET VOLUME 8.6 fL (7.4-10.4); MONOCYTES # (AUTO) 0.38 x10^3/uL (0.2-0.8); MONOCYTES % (AUTO) 6 % (2-9); NEUTROPHILS # (AUTO) 3.75 x10^3/uL (1.8-6.8); NEUTROPHILS % (AUTO) 61 % (42-75); PLATELET COUNT 223 x10^3/uL (130-400); RED BLOOD COUNT 3.97 x10^6/uL (4.38-5.82); RED CELL DISTRIBUTION WIDTH 15.9 % (9.4-14.8)
[2018-10-28 06:28] LABS: ANION GAP 6 mmol/L (5-15); CALCIUM 8.4 mg/dL (8.5-10.1); CHLORIDE 106 mmol/L (98-107)
[2018-10-28 06:31] LABS: CREATININE 0.95 mg/dL (0.7-1.3)
[2018-10-28 07:32] VITALS: BP_SYST 126; BP_SYST 150; BP_SYST 72; BP_DIAS 49; BP_DIAS 68; BP_DIAS 70
[2018-10-28] MEDS: SENNA/DOCUSATE TABLET PO SCH (09:00)
[2018-10-28] MEDS: SODIUM CHLORIDE FLUSH 10ML SYR IVF SCH ×2 (09:00→20:53)
[2018-10-28] MEDS: OMEPRAZOLE 20 MG CAPSULE.DR PO SCH (09:22)
[2018-10-28] MEDS: FUROSEMIDE 40 MG TABLET PO SCH (09:22)
[2018-10-28] MEDS: FLUDROCORTISONE 0.1 MG TABLET PO SCH (09:22)
[2018-10-28] MEDS: CYANOCOBALAMIN 1,000 MCG TABLET PO SCH (09:23)
[2018-10-28] MEDS: ASPIRIN 81 MG TABLET EC PO SCH (09:23)
[2018-10-28] MEDS: POTASSIUM CHLORIDE 10 MEQ TABLET.ER PO SCH (09:23)
[2018-10-28] MEDS: LISINOPRIL 5 MG TABLET PO SCH (09:23)
[2018-10-28] MEDS: GABAPENTIN 300 MG CAPSULE PO SCH ×3 (09:23→20:53)
[2018-10-28] MEDS: INSULIN GLARGINE 100 UNITS/ML, PEN SQ-INSULIN SCH (09:24)
[2018-10-28 12:17] VITALS: BP_SYST 112; BP_SYST 156; BP_SYST 160; BP_DIAS 69; BP_DIAS 75; BP_DIAS 81
[2018-10-28] MEDS: MIDODRINE 2.5 MG TABLET PO SCH ×2 (13:40→20:53)
[2018-10-28 18:29] VITALS: BP 151/74
[2018-10-28 18:30] VITALS: BP 115/69
[2018-10-28 18:31] VITALS: BP 145/77
[2018-10-28] MEDS: TAMSULOSIN 0.4 MG CAP.ER.24H PO SCH (20:53)
[2018-10-29] MEDS: HEPARIN 5,000 UNITS/ML, 1ML SQ SCH ×3 (02:19→16:50)
[2018-10-29 02:20] VITALS: BP_SYST 114; BP_SYST 136; BP_SYST 94; BP_DIAS 58; BP_DIAS 69; BP_DIAS 73
[2018-10-29 06:01] LABS: ANION GAP 7 mmol/L (5-15); CALCIUM 8.3 mg/dL (8.5-10.1); CHLORIDE 107 mmol/L (98-107); CREATININE 0.98 mg/dL (0.7-1.3)
[2018-10-29 06:02] LABS: BASOPHILS # (AUTO) 0.05 x10^3/uL (0-0.1); BASOPHILS % (AUTO) 1 % (0-1); EOSINOPHILS # (AUTO) 0.25 x10^3/uL (0-0.4); EOSINOPHILS % (AUTO) 4 % (1-7); LYMPHOCYTES # (AUTO) 1.54 x10^3/uL (1-3.4); LYMPHOCYTES % (AUTO) 26 % (22-44); MD NO; MEAN CORPUSCULAR HEMOGLOBIN 29.5 pg (27.5-34.5); MEAN CORPUSCULAR HGB CONC 34.4 g/dL (33.2-36.2); MEAN CORPUSCULAR VOLUME 85.8 fL (81-97); MEAN PLATELET VOLUME 8.6 fL (7.4-10.4); MONOCYTES % (AUTO) 7 % (2-9); NEUTROPHILS # (AUTO) 3.76 x10^3/uL (1.8-6.8); NEUTROPHILS % (AUTO) 63 % (42-75); PLATELET COUNT 240 x10^3/uL (130-400); RED BLOOD COUNT 3.96 x10^6/uL (4.38-5.82); RED CELL DISTRIBUTION WIDTH 15.9 % (9.4-14.8)
[2018-10-29 08:00] VITALS: BP_SYST 119; BP_SYST 75; BP_SYST 88; BP_DIAS 38; BP_DIAS 52; BP_DIAS 61
[2018-10-29] MEDS: SODIUM CHLORIDE FLUSH 10ML SYR IVF SCH ×2 (09:00→21:32)
[2018-10-29] MEDS: SENNA/DOCUSATE TABLET PO SCH (09:00)
[2018-10-29] MEDS: FUROSEMIDE 40 MG TABLET PO SCH (09:55)
[2018-10-29] MEDS: OMEPRAZOLE 20 MG CAPSULE.DR PO SCH (09:55)
[2018-10-29] MEDS: FLUDROCORTISONE 0.1 MG TABLET PO SCH (09:55)
[2018-10-29] MEDS: CYANOCOBALAMIN 1,000 MCG TABLET PO SCH (09:55)
[2018-10-29] MEDS: MIDODRINE 2.5 MG TABLET PO SCH ×2 (09:56→21:32)
[2018-10-29] MEDS: GABAPENTIN 300 MG CAPSULE PO SCH ×3 (09:56→21:32)
[2018-10-29] MEDS: POTASSIUM CHLORIDE 10 MEQ TABLET.ER PO SCH (09:56)
[2018-10-29] MEDS: LISINOPRIL 5 MG TABLET PO SCH (09:56)
[2018-10-29] MEDS: ASPIRIN 81 MG TABLET EC PO SCH (09:56)
[2018-10-29] MEDS: INSULIN GLARGINE 100 UNITS/ML, PEN SQ-INSULIN SCH (09:58)
[2018-10-29 13:17] VITALS: BP_SYST 138; BP_SYST 90; BP_SYST 96; BP_DIAS 55; BP_DIAS 58; BP_DIAS 68
[2018-10-29 19:11] VITALS: BP_SYST 110; BP_SYST 152; BP_SYST 169; BP_DIAS 68; BP_DIAS 75; BP_DIAS 79
[2018-10-29] MEDS: TAMSULOSIN 0.4 MG CAP.ER.24H PO SCH (21:32)
[2018-10-30 01:27] VITALS: BP_SYST 101; BP_SYST 136; BP_SYST 89; BP_DIAS 48; BP_DIAS 59; BP_DIAS 70
[2018-10-30] MEDS: HEPARIN 5,000 UNITS/ML, 1ML SQ SCH ×3 (03:30→18:10)
[2018-10-30 06:18] LABS: BASOPHILS # (AUTO) 0.04 x10^3/uL (0-0.1); BASOPHILS % (AUTO) 1 % (0-1); EOSINOPHILS # (AUTO) 0.25 x10^3/uL (0-0.4); EOSINOPHILS % (AUTO) 5 % (1-7); LYMPHOCYTES # (AUTO) 1.51 x10^3/uL (1-3.4); LYMPHOCYTES % (AUTO) 27 % (22-44); MD NO; MEAN CORPUSCULAR HEMOGLOBIN 29.5 pg (27.5-34.5); MEAN CORPUSCULAR HGB CONC 34.2 g/dL (33.2-36.2); MEAN CORPUSCULAR VOLUME 86.3 fL (81-97); MEAN PLATELET VOLUME 8.8 fL (7.4-10.4); MONOCYTES # (AUTO) 0.34 x10^3/uL (0.2-0.8); MONOCYTES % (AUTO) 6 % (2-9); NEUTROPHILS # (AUTO) 3.52 x10^3/uL (1.8-6.8); NEUTROPHILS % (AUTO) 62 % (42-75); PLATELET COUNT 229 x10^3/uL (130-400); RED BLOOD COUNT 4.09 x10^6/uL (4.38-5.82); RED CELL DISTRIBUTION WIDTH 15.7 % (9.4-14.8)
[2018-10-30 06:28] LABS: ANION GAP 6 mmol/L (5-15); CALCIUM 8.5 mg/dL (8.5-10.1); CHLORIDE 107 mmol/L (98-107)
[2018-10-30 06:30] LABS: CREATININE 0.89 mg/dL (0.7-1.3)
[2018-10-30 08:04] VITALS: BP_SYST 103; BP_SYST 125; BP_SYST 146; BP_DIAS 62; BP_DIAS 71; BP_DIAS 72
[2018-10-30] MEDS: INSULIN GLARGINE 100 UNITS/ML, PEN SQ-INSULIN SCH (08:56)
[2018-10-30] MEDS: SENNA/DOCUSATE TABLET PO SCH (09:00)
[2018-10-30] MEDS: ASPIRIN 81 MG TABLET EC PO SCH (11:01)
[2018-10-30] MEDS: FUROSEMIDE 40 MG TABLET PO SCH (11:01)
[2018-10-30] MEDS: FLUDROCORTISONE 0.1 MG TABLET PO SCH (11:02)
[2018-10-30] MEDS: GABAPENTIN 300 MG CAPSULE PO SCH ×3 (11:02→20:51)
[2018-10-30] MEDS: MIDODRINE 2.5 MG TABLET PO SCH ×2 (11:02→20:52)
[2018-10-30] MEDS: CYANOCOBALAMIN 1,000 MCG TABLET PO SCH (11:02)
[2018-10-30] MEDS: POTASSIUM CHLORIDE 10 MEQ TABLET.ER PO SCH (11:03)
[2018-10-30] MEDS: OMEPRAZOLE 20 MG CAPSULE.DR PO SCH (11:03)
[2018-10-30] MEDS: LISINOPRIL 5 MG TABLET PO SCH (11:03)
[2018-10-30] MEDS: SODIUM CHLORIDE FLUSH 10ML SYR IVF SCH ×2 (11:04→20:51)
[2018-10-30 12:25] VITALS: BP 128/69
[2018-10-30 20:39] VITALS: BP 160/78
[2018-10-30] MEDS: TAMSULOSIN 0.4 MG CAP.ER.24H PO SCH (20:51)
[2018-10-31 00:22] VITALS: BP 117/64
[2018-10-31] MEDS: HEPARIN 5,000 UNITS/ML, 1ML SQ SCH ×3 (02:12→16:46)
[2018-10-31 06:42] LABS: BASOPHILS # (AUTO) 0.05 x10^3/uL (0-0.1); BASOPHILS % (AUTO) 1 % (0-1); EOSINOPHILS # (AUTO) 0.15 x10^3/uL (0-0.4); EOSINOPHILS % (AUTO) 3 % (1-7); LYMPHOCYTES # (AUTO) 1.45 x10^3/uL (1-3.4); LYMPHOCYTES % (AUTO) 27 % (22-44); MD NO; MEAN CORPUSCULAR HEMOGLOBIN 28.7 pg (27.5-34.5); MEAN CORPUSCULAR HGB CONC 33.2 g/dL (33.2-36.2); MEAN CORPUSCULAR VOLUME 86.6 fL (81-97); MEAN PLATELET VOLUME 8.8 fL (7.4-10.4); MONOCYTES # (AUTO) 0.34 x10^3/uL (0.2-0.8); MONOCYTES % (AUTO) 6 % (2-9); NEUTROPHILS % (AUTO) 64 % (42-75); PLATELET COUNT 228 x10^3/uL (130-400); RED BLOOD COUNT 4.03 x10^6/uL (4.38-5.82); RED CELL DISTRIBUTION WIDTH 15.8 % (9.4-14.8)
[2018-10-31 06:52] LABS: ANION GAP 8 mmol/L (5-15); CALCIUM 8.6 mg/dL (8.5-10.1); CHLORIDE 107 mmol/L (98-107); CREATININE 0.78 mg/dL (0.7-1.3)
[2018-10-31 07:12] VITALS: BP 134/71
[2018-10-31] MEDS: SENNA/DOCUSATE TABLET PO SCH (09:00)
[2018-10-31] MEDS: SODIUM CHLORIDE FLUSH 10ML SYR IVF SCH ×2 (09:00→20:27)
[2018-10-31] MEDS: FLUDROCORTISONE 0.1 MG TABLET PO SCH (09:14)
[2018-10-31] MEDS: MIDODRINE 2.5 MG TABLET PO SCH ×2 (09:15→20:26)
[2018-10-31] MEDS: ASPIRIN 81 MG TABLET EC PO SCH (09:15)
[2018-10-31] MEDS: POTASSIUM CHLORIDE 10 MEQ TABLET.ER PO SCH (09:15)
[2018-10-31] MEDS: GABAPENTIN 300 MG CAPSULE PO SCH ×3 (09:15→20:27)
[2018-10-31] MEDS: OMEPRAZOLE 20 MG CAPSULE.DR PO SCH (09:15)
[2018-10-31] MEDS: LISINOPRIL 5 MG TABLET PO SCH (09:15)
[2018-10-31] MEDS: FUROSEMIDE 40 MG TABLET PO SCH (09:15)
[2018-10-31] MEDS: CYANOCOBALAMIN 1,000 MCG TABLET PO SCH (09:16)
[2018-10-31] MEDS: INSULIN GLARGINE 100 UNITS/ML, PEN SQ-INSULIN SCH (09:17)
[2018-10-31 12:20] VITALS: BP 131/67
[2018-10-31] MEDS: TAMSULOSIN 0.4 MG CAP.ER.24H PO SCH (20:26)
[2018-10-31 20:54] VITALS: BP 137/74
[2018-11-01] VITALS (7 sets, daily range): BP systolic 93–175; BP diastolic 59–81
[2018-11-01] MEDS: HEPARIN 5,000 UNITS/ML, 1ML SQ SCH ×3 (01:01→16:59)
[2018-11-01 07:12] LABS: ANION GAP 6 mmol/L (5-15); CALCIUM 8.5 mg/dL (8.5-10.1); CHLORIDE 106 mmol/L (98-107)
[2018-11-01 07:14] LABS: CREATININE 0.83 mg/dL (0.7-1.3)
[2018-11-01 07:28] LABS: BASOPHILS # (AUTO) 0.03 x10^3/uL (0-0.1); BASOPHILS % (AUTO) 1 % (0-1); EOSINOPHILS # (AUTO) 0.26 x10^3/uL (0-0.4); EOSINOPHILS % (AUTO) 4 % (1-7); LYMPHOCYTES # (AUTO) 1.52 x10^3/uL (1-3.4); LYMPHOCYTES % (AUTO) 22 % (22-44); MD NO; MEAN CORPUSCULAR HEMOGLOBIN 29.2 pg (27.5-34.5); MEAN CORPUSCULAR HGB CONC 33.6 g/dL (33.2-36.2); MEAN CORPUSCULAR VOLUME 86.8 fL (81-97); MEAN PLATELET VOLUME 9.1 fL (7.4-10.4); MONOCYTES # (AUTO) 0.42 x10^3/uL (0.2-0.8); MONOCYTES % (AUTO) 6 % (2-9); NEUTROPHILS # (AUTO) 4.55 x10^3/uL (1.8-6.8); NEUTROPHILS % (AUTO) 67 % (42-75); PLATELET COUNT 226 x10^3/uL (130-400); RED BLOOD COUNT 4.19 x10^6/uL (4.38-5.82); RED CELL DISTRIBUTION WIDTH 16.1 % (9.4-14.8)
[2018-11-01] MEDS: FLUDROCORTISONE 0.1 MG TABLET PO SCH (08:16)
[2018-11-01] MEDS: LISINOPRIL 5 MG TABLET PO SCH (08:16)
[2018-11-01] MEDS: GABAPENTIN 300 MG CAPSULE PO SCH ×3 (08:17→20:45)
[2018-11-01] MEDS: ASPIRIN 81 MG TABLET EC PO SCH (08:17)
[2018-11-01] MEDS: OMEPRAZOLE 20 MG CAPSULE.DR PO SCH (08:17)
[2018-11-01] MEDS: FUROSEMIDE 40 MG TABLET PO SCH (08:17)
[2018-11-01] MEDS: SENNA/DOCUSATE TABLET PO SCH (08:17)
[2018-11-01] MEDS: MIDODRINE 2.5 MG TABLET PO SCH ×2 (08:17→21:00)
[2018-11-01] MEDS: POTASSIUM CHLORIDE 10 MEQ TABLET.ER PO SCH (08:17)
[2018-11-01] MEDS: CYANOCOBALAMIN 1,000 MCG TABLET PO SCH (08:18)
[2018-11-01] MEDS: INSULIN GLARGINE 100 UNITS/ML, PEN SQ-INSULIN SCH (08:21)
[2018-11-01] MEDS: SODIUM CHLORIDE FLUSH 10ML SYR IVF SCH ×2 (08:22→20:45)
[2018-11-01] MEDS: TAMSULOSIN 0.4 MG CAP.ER.24H PO SCH (20:45)
[2018-11-02] VITALS (14 sets, daily range): BP systolic 66–169; BP diastolic 35–80
[2018-11-02] MEDS: HEPARIN 5,000 UNITS/ML, 1ML SQ SCH ×3 (01:22→18:10)
[2018-11-02] MEDS: ACETAMINOPHEN 325 MG TABLET PO PRN (01:29)
[2018-11-02] MEDS: CYANOCOBALAMIN 1,000 MCG TABLET PO SCH (08:29)
[2018-11-02] MEDS: FUROSEMIDE 40 MG TABLET PO SCH (08:30)
[2018-11-02] MEDS: POTASSIUM CHLORIDE 10 MEQ TABLET.ER PO SCH (08:30)
[2018-11-02] MEDS: GABAPENTIN 300 MG CAPSULE PO SCH ×3 (08:30→22:08)
[2018-11-02] MEDS: MIDODRINE 2.5 MG TABLET PO SCH ×2 (08:30→22:08)
[2018-11-02] MEDS: ASPIRIN 81 MG TABLET EC PO SCH (08:30)
[2018-11-02] MEDS: LISINOPRIL 5 MG TABLET PO SCH (08:30)
[2018-11-02] MEDS: OMEPRAZOLE 20 MG CAPSULE.DR PO SCH (08:31)
[2018-11-02] MEDS: SODIUM CHLORIDE FLUSH 10ML SYR IVF SCH ×2 (08:31→22:08)
[2018-11-02] MEDS: FLUDROCORTISONE 0.1 MG TABLET PO SCH (08:32)
[2018-11-02] MEDS: SENNA/DOCUSATE TABLET PO SCH (08:33)
[2018-11-02] MEDS: INSULIN GLARGINE 100 UNITS/ML, PEN SQ-INSULIN SCH (08:33)
[2018-11-02] MEDS: ALBUMIN HUMAN 25% 100 ML IV SCH ×2 (10:35→22:07)
[2018-11-02 10:36] LABS: MICROSCOPIC AUTO
[2018-11-02 10:43] LABS: CULTURE INDICATED? YES
[2018-11-02] MEDS: TAMSULOSIN 0.4 MG CAP.ER.24H PO SCH (22:08)
[2018-11-03] VITALS (8 sets, daily range): BP systolic 68–171; BP diastolic 40–80
[2018-11-03] MEDS: HEPARIN 5,000 UNITS/ML, 1ML SQ SCH ×3 (02:39→18:42)
[2018-11-03 06:13] LABS: ANION GAP 6 mmol/L (5-15); CALCIUM 8.3 mg/dL (8.5-10.1); CHLORIDE 107 mmol/L (98-107); CREATININE 1.01 mg/dL (0.7-1.3)
[2018-11-03] MEDS: POTASSIUM CHLORIDE 10 MEQ TABLET.ER PO SCH (08:34)
[2018-11-03] MEDS: MIDODRINE 2.5 MG TABLET PO SCH ×2 (08:35→21:30)
[2018-11-03] MEDS: CYANOCOBALAMIN 1,000 MCG TABLET PO SCH (08:35)
[2018-11-03] MEDS: ASPIRIN 81 MG TABLET EC PO SCH (08:35)
[2018-11-03] MEDS: GABAPENTIN 300 MG CAPSULE PO SCH ×3 (08:36→21:30)
[2018-11-03] MEDS: FUROSEMIDE 40 MG TABLET PO SCH (08:37)
[2018-11-03] MEDS: SENNA/DOCUSATE TABLET PO SCH (08:37)
[2018-11-03] MEDS: FLUDROCORTISONE 0.1 MG TABLET PO SCH (08:38)
[2018-11-03] MEDS: OMEPRAZOLE 20 MG CAPSULE.DR PO SCH (08:39)
[2018-11-03] MEDS: SODIUM CHLORIDE FLUSH 10ML SYR IVF SCH ×2 (08:39→21:31)
[2018-11-03] MEDS: ALBUMIN HUMAN 25% 100 ML IV SCH (08:41)
[2018-11-03] MEDS: INSULIN GLARGINE 100 UNITS/ML, PEN SQ-INSULIN SCH (08:47)
[2018-11-03] MEDS: TAMSULOSIN 0.4 MG CAP.ER.24H PO SCH (21:31)
[2018-11-04] MEDS: HEPARIN 5,000 UNITS/ML, 1ML SQ SCH ×2 (01:52→10:00)
[2018-11-04 01:54] VITALS: BP 131/72
[2018-11-04 08:00] VITALS: BP_SYST 118; BP_SYST 132; BP_SYST 140; BP_DIAS 64; BP_DIAS 76; BP_DIAS 78
[2018-11-04] MEDS: INSULIN GLARGINE 100 UNITS/ML, PEN SQ-INSULIN SCH (08:17)
[2018-11-04] MEDS: OMEPRAZOLE 20 MG CAPSULE.DR PO SCH (08:17)
[2018-11-04] MEDS: ASPIRIN 81 MG TABLET EC PO SCH (08:17)
[2018-11-04] MEDS: FUROSEMIDE 40 MG TABLET PO SCH (08:17)
[2018-11-04] MEDS: FLUDROCORTISONE 0.1 MG TABLET PO SCH (08:17)
[2018-11-04] MEDS: GABAPENTIN 300 MG CAPSULE PO SCH (08:17)
[2018-11-04] MEDS: POTASSIUM CHLORIDE 10 MEQ TABLET.ER PO SCH (08:17)
[2018-11-04] MEDS: CYANOCOBALAMIN 1,000 MCG TABLET PO SCH (08:18)
[2018-11-04] MEDS: SENNA/DOCUSATE TABLET PO SCH (08:18)
[2018-11-04] MEDS ORDERED: MIDODRINE 2.5 MG TABLET PO SCH (09:00)
[2018-11-04] MEDS ORDERED: LISINOPRIL 5 MG TABLET PO SCH (09:00)
[2018-11-04] MEDS ORDERED: MIDO10TA PO (12:30)
[2018-11-04] MEDS ORDERED: FURO20TA3 PO (12:30)
[2018-11-04 14:30] VITALS: BP 130/70
[2018-11-04] MEDS ORDERED: LACT1TAB13 PO (16:08)
[2018-11-04] MEDS ORDERED: LEVO500T47 PO (16:08)
== END 2018-11-04 17:00 | disposition home health service (06) | DRG 727 ==
LOC: ED 18:27 → EDIP 20:53 → 5SO 21:29 → 4WST 10-24 03:32 → DCLOUNGE 11-04 16:40
PROVIDERS: ADMIT Hospitalist; ATTEND Hospitalist
PROC: 0T9B70Z Drainage of Bladder with Drainage Device, Via Natural or Artificial Opening (ICD-10-PCS; 2018-10-11)
PROC: 0W9B3ZZ Drainage of Left Pleural Cavity, Percutaneous Approach (ICD-10-PCS; principal; 2018-10-14)
DX: N49.2 Inflammatory disorders of scrotum (principal); E43 Unspecified severe protein-calorie malnutrition; I50.33 Acute on chronic diastolic (congestive) heart failure; J98.11 Atelectasis; N39.0 Urinary tract infection, site not specified; J90 Pleural effusion, not elsewhere classified; N48.22 Cellulitis of corpus cavernosum and penis; I11.0 Hypertensive heart disease with heart failure; B96.5 Pseudomonas (aeruginosa) (mallei) (pseudomallei) as the cause of diseases classified elsewhere; B96.89 Other specified bacterial agents as the cause of diseases classified elsewhere; D64.9 Anemia, unspecified; E11.65 Type 2 diabetes mellitus with hyperglycemia; I95.1 Orthostatic hypotension; K40.20 Bilateral inguinal hernia, without obstruction or gangrene, not specified as recurrent; N43.3 Hydrocele, unspecified; Z79.4 Long term (current) use of insulin; Z82.5 Family history of asthma and other chronic lower respiratory diseases; Z83.3 Family history of diabetes mellitus; Z68.21 Body mass index [BMI] 21.0-21.9, adult; I25.2 Old myocardial infarction; Z86.74 Personal history of sudden cardiac arrest
CPT/HCPCS: 32555; 36415; 71045; 71046; 74177; 80048; 80053; 81001; 82040; 82945; 82962; 83036; 83615; 83880; 84155; 84157; 84484; 85025; 85610; 87040; 87070; 87077; 87086; 87186; 87205; 87324; 89051; 93005; 93306; 96374; 96375; 99285; G0378; J0295; J1644; J1940; J2543; P9047; Q9967; J1815